=== PATIENT | male | born 1960 | race Caucasian/White ===

== ENCOUNTER 2025-03-06 18:20 | Inpatient (IN) | payer MEDICARE, SELFPAY ==
[2025-03-06] VITALS (37 sets, daily range): BP systolic 113–155; BP diastolic 81–101; PULSE 87–118; TEMP 36.6–37.3; O2SAT 91–99; BMI 28.5; BMI 28.0
--- NOTE | 2025-03-06 18:42 | XR_ITS ---
[facility] [place] [id number] Patient Name: MAGALY WALKER MRN: [id number] date: 1960 Sex: M Assigned Patient Location: ER Current Patient Location: ER Accession/Order Number: [id number] Exam Date: 03/06/2025 18:55 Report Date: 03/06/2025 19:06 At the request of: NIKA GARCIA MD Procedure: XR chest 1V Single view chest: CLINICAL HISTORY: shortness of breath COMPARISON: Chest 04/15/2022 FINDINGS: The heart is normal in size. The lungs are clear. The pulmonary vasculature is normal. Mediastinum and hilar regions are unremarkable. No pleural effusions are seen. Visualized bones are intact. XR/XR chest 1V IMPRESSION: NO ACUTE PROCESS. Impression dictated by: Sang Horn Jr., D.O. 03/06/2025 7:06 PM Dictation Location: [place] [address] Electronically authenticated by: [id number] Y Date: 03/06/2025 19:06
--- NOTE | 2025-03-06 18:42 | ECG_ITS ---
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 Measurements Intervals [place] Rate: 114 P: 61 IL: 148 QRS: 27 QRSD: 84 T: 64 QT: 302 QTc: 369 Interpretive Statements 1120 Sinus tachycardia 4068 Nonspecific Twave abnormality abnormal ECG Compared to ECG 04/15/2022 12:17:20 Sinus rhythm no longer present Electronically Signed On 03-06-2025 19:27:42 EDT by MELISSA SERNA M.D.
[2025-03-06 18:55] LABS: Hematocrit 40.7 % (42.0-54.0); Hemoglobin 14.0 g/dL (14.0-18.0); Immature Granulocytes Abs Auto 0.04 10^3/uL (0.00-0.03); Immature Granulocytes Pct Auto 0.4 % (0.0-0.5); Lymphocytes Absolute Auto 0.9 10^3/uL (1.2-3.8); Mean Corpuscular HGB Conc 34.4 g/dL (29.9-35.2); Mean Corpuscular Hemoglobin 30.4 pg (25.9-34.0); Mean Corpuscular Volume 88.3 fL (80.0-94.0); Platelet Count 247 10^3/uL (150-450); Red Blood Count 4.61 10^6/uL (4.70-6.10); White Blood Count 9.8 10^3/uL (4.0-11.0)
--- NOTE | 2025-03-06 19:04 | ED.GENADUL1 ---
HPI HPI - General Adult General Chief complaint: Chest Pain Stated complaint: CHEST PAINS Time Seen by Provider: 03/06/25 18:55 Source: patient Mode of arrival: walk-in Limitations: no limitations History of Present Illness HPI narrative: Patient is a 65-year-old male with a past medical history of prostate cancer and Amawalk's disease that presents to the emergency department with chest pain and shortness of breath that started at approximately 4 PM today, about 3 hours prior to arrival. The pain does radiate into his left shoulder and is worse with inspiration. Patient denies any blunt trauma or falls. He states that prior to the chest pain starting he did have an episode where he was dizzy and became diaphoretic. This resolved with rest. He has been getting dizziness again since the chest pain started. He denies any nausea/vomiting/abdominal pain, or diarrhea. He was at a car show when the pain started and took 3 aspirin and called his as he did not think he could drive. Related Data Home Medications ?Medication ?Instructions ?Recorded ?Confirmed albuterol sulfate 90 mcg/actuation 2 puff inhalation Q6H PRN 03/06/25 03/06/25 aerosol inhaler shortness of breath or wheezing atorvastatin 20 mg tablet 20 mg PO QDAY 03/06/25 03/06/25 famotidine 20 mg tablet 20 mg PO QDAY 03/06/25 03/06/25 fluticasone propionate 50 1 spray intranasal QDAY PRN 03/06/25 03/06/25 mcg/actuation nasal allergy symptoms spray,suspension hydrochlorothiazide 25 mg tablet 25 mg PO QDAY 03/06/25 03/06/25 hydrocortisone 10 mg tablet 10 mg PO Q8H 03/06/25 03/06/25 sertraline 25 mg tablet 25 mg PO Q24H 03/06/25 03/06/25 tizanidine 4 mg tablet 4 mg PO .qhs 03/06/25 03/06/25 Allergies Allergy/AdvReac Type Severity Reaction Status Date / Time No Known Drug Allergies Allergy Verified 03/06/25 18:27 Opioid HPI Opioid Management Most Recent Opioid Data: Last Pain Scale 8 Today, 21:29 Last JUL Pain Assessment Today, 19:46 Review of Systems ROS Status of ROS 10 or more systems reviewed and unremarkable except as noted in history and below PFSH PFSH Social History Little interest or pleasure in doing things: not at all Feeling down, depressed, or hopeless: not at all Exam Narrative Exam Narrative: General: No distress, age-appropriate Skin: Warm, dry, no pallor. No rash. Head: Normocephalic, atraumatic. Neck: Supple, non-tender. Eye: Pupils are equal, round and EOMI. No scleral icterus. Ears, Nose, Mouth, and Throat: No nasal mucosal hypertrophy. Oral mucosa is moist, no posterior oropharynx erythema, uvula is mid-line Cardiovascular: Regular Rate and Rhythm without murmur, gallop or rub. Respiratory: No accessory muscle use or respiratory distress. Lungs are clear to auscultation, no wheezing, rales or rhonchi Chest Wall: no tenderness Back: No midline thoracic or lumbar vertebral tenderness. Musculoskeletal: Full ROM of all extremities, no calf or popliteal tenderness GI: Abdomen is soft, non-distended, non tender to palpation. No masses appreciated. No rebound, guarding, or rigidity noted. Neurological: A&O x4. No cranial nerve dysfunction observed. No truncal ataxia. Moves all extremities. Sensation intact. Psychiatric: Cooperative and interactive. Normal mood and affect. Constitutional Vital Signs, click to edit/add: Last Vital Signs Temp 99.2 F 03/06/25 18:37 Pulse 96 H 03/06/25 21:00 Resp 15 03/06/25 21:00 BP 126/85 03/06/25 21:00 Pulse Ox 97 03/06/25 21:40 O2 Del Method Nasal Cannula 03/06/25 21:40 O2 Flow Rate 2 03/06/25 21:40 Course Vital Signs Vital signs: Vital Signs Blood Pressure 150/101 H 03/06/25 18:29 Pulse Oximetry 95 03/06/25 18:29 Temperature 99.2 F 03/06/25 18:37 Pulse Rate 96 H 03/06/25 21:00 Respiratory Rate 15 03/06/25 21:00 Blood Pressure 126/85 03/06/25 21:00 Pulse Oximetry 97 03/06/25 21:40 Oxygen Delivery Method Nasal Cannula 03/06/25 21:40 Oxygen Delivery Flow Rate 2 03/06/25 21:40 Medical Decision Making MDM Narrative Medical decision making narrative: This is a 65-year-old male that presented to the emergency department about 3 hours after onset of left-sided chest pain that radiates into his left shoulder and somewhat into his back. He denies any blunt trauma or falls. He he does report shortness of breath. He denies nausea/vomiting. He has had some episodes of dizziness and diaphoresis. One episode was prior to the onset of his chest pain. After the chest pain started he took 3 aspirin and called his as he could not drive to get to the emergency department. On arrival patient is sitting up on the ED cart, nondiaphoretic, in no distress, pain with deep inspiration on exam. Blood pressure is hypertensive, patient is tachycardic. He is 97% O2 saturation on room air. No respiratory distress. IV placed. CBC/CMP/troponin/D-dimer ordered. Chest x-ray ordered. 0.5 mg Dilaudid ordered for pain Differential diagnosis: - ACS - PE - Pneumothorax - Aortic dissection - Pericarditis/myocarditis EKG on arrival shows sinus tachycardia, no ST elevation or T wave abnormalities. Chest x-ray negative for acute abnormalities, no pneumothorax, no pleural effusion. No mediastinal widening. D-dimer elevated at 2.46-CTA chest ordered Troponin negative: 7.8 BMP: Cr 1.8/ BUN 30-unknown baseline CTA chest results received and impression is positive for pulmonary emboli within the distal right main pulmonary artery and segmental and subsegmental pulmonary artery supplying right upper and lower lobes. There is flattening of the inner ventricular septum and increased right to left ventricular ratio indicating a right heart strain. There is enlarged main pulmonary artery which may be seen with pulmonary arterial hypertension. I did call and review these findings with Dr. Marroquin who will accept patient for admission here. Patient and his updated with plan. PT/INR/APTT ordered and within normal limits. Heparin bolus and heparin drip ordered. On reevaluation pain is starting to increase again after initial Dilaudid dose. 1 mg Dilaudid ordered. Vitals have remained stable during patient's ED course and patient was admitted to [facility] for further evaluation and treatment. Lab Data Lab results reviewed: Yes I reviewed the patient's lab results Labs: Lab Results 03/06/25 03/06/25 Range/Units 18:47 18:48 WBC 9.8 (4.0-11.0) 10^3/uL RBC 4.61 L (4.70-6.10) 10^6/uL Hgb 14.0 (14.0-18.0) g/dL Hct 40.7 L (42.0-54.0) % MCV 88.3 (80.0-94.0) fL MCH 30.4 (25.9-34.0) pg MCHC 34.4 (29.9-35.2) g/dL RDW 12.4 (11.0-15.0) % Plt Count 247 (150-450) 10^3/uL MPV 8.9 L (9.5-13.5) fL Neut % (Auto) 77.8 H (43.0-75.0) % Lymph % (Auto) 9.1 L (20.5-60.0) % [place] % (Auto) 11.4 (1.7-12.0) % Eos % (Auto) 1.0 (0.9-7.0) % Baso % (Auto) 0.3 (0.2-2.0) % Neut # (Auto) 7.7 H (1.4-6.5) 10^3/uL Lymph # (Auto) 0.9 L (1.2-3.8) 10^3/uL [place] # (Auto) 1.1 H (0.3-0.8) 10^3/uL Eos # (Auto) 0.1 (0.0-0.7) 10^3/uL Baso # (Auto) 0.0 (0.0-0.1) 10^3/uL Abs Immat Gran (auto) 0.04 H (0.00-0.03) 10^3/uL Imm/Tot Granulo (auto) 0.4 (0.0-0.5) % PT 10.5 (9.0-11.6) sec INR 0.99 APTT 28.8 (22.3-36.2) sec D-Dimer 2.46 H* (<=0.59) mg/L FEU Sodium 140 (136-145) mmol/L Potassium 4.1 (3.5-5.1) mmol/L Chloride 102 (98-107) mmol/L Carbon Dioxide 23.8 (21.0-32.0) mmol/L Anion Gap 18.3 BUN 30.0 H (7.0-18.0) mg/dL Creatinine 1.88 H (0.70-1.30) mg/dL Est GFR ( Amer) 44 L (>=60 mL/min/1.73m^2) Est GFR (Non-Af Amer) 36 L (>=60 mL/min/1.73m^2) BUN/Creatinine Ratio 16.0 Glucose 125 H (74-106) mg/dL Calcium 9.4 (8.5-10.1) mg/dL Total Bilirubin 0.6 (0.2-1.0) mg/dL AST 16 (15-37) U/L ALT 23 (16-63) U/L Alkaline Phosphatase 90 (46-116) U/L Troponin I High Sens 7.8 (4.0-76.1) pg/mL Total Protein 8.0 (6.4-8.2) g/dL Albumin 4.1 (3.4-5.0) g/dL Globulin 3.9 g/dL Albumin/Globulin Ratio 1.[address] scan - chest: Attestation: I have reviewed the pertinent imaging results. Radiologist's impression: ITS Impressions Chest X-Ray 03/06/25 18:42 IMPRESSION: NO ACUTE PROCESS. Impression dictated by: Sang Horn Jr., D.OSyed 03/06/2025 7:06 PM Dictation Location: [place] [address] Electronically authenticated by: [id number] Y Date: 03/06/2025 19:06 ECG Data Attestation: ?I have reviewed the pertinent ECG results. Discharge Plan Discharge Chief Complaint: Chest Pain Clinical Impression: Pulmonary embolism Patient Disposition: Admitted As Inpatient Time of Disposition Decision: 21:17 Condition: Fair
[2025-03-06 19:11] LABS: Alanine Aminotransferase 23 U/L (16-63); Albumin Globulin Ratio 1.1; Albumin Level 4.1 g/dL (3.4-5.0); Alkaline Phosphatase 90 U/L (46-116); Anion Gap 18.3; Aspartate Amino Transferase 16 U/L (15-37); Blood Urea Nitrogen 30.0 mg/dL (7.0-18.0); Calcium 9.4 mg/dL (8.5-10.1); Carbon Dioxide 23.8 mmol/L (21.0-32.0); Chloride 102 mmol/L (98-107); Estimated GFR (African America 44 (>=60 mL/min/1.73m^2); Estimated GFR (Non-African Ame 36 (>=60 mL/min/1.73m^2); Globulin 3.9 g/dL; Glucose 125 mg/dL (74-106); Potassium 4.1 mmol/L (3.5-5.1); Sodium 140 mmol/L (136-145); Total Protein 8.0 g/dL (6.4-8.2)
[2025-03-06] MEDS: HYDROMORPHONE HCL 0.5 MG/0.5 ML SYRINGE IV (19:46)
[2025-03-06 21:15] LABS: INR 0.99; Prothrombin Time 10.5 sec (9.0-11.6)
[2025-03-06 21:16] LABS: Partial Thromboplastin Time 28.8 sec (22.3-36.2)
[2025-03-06] MEDS: HYDROMORPHONE HCL 1 MG/ML CARTRIDGE IV (21:29)
[2025-03-06 21:46] LABS: Alanine Aminotransferase 27 U/L (16-63); Albumin Globulin Ratio 1.0; Albumin Level 4.0 g/dL (3.4-5.0); Alkaline Phosphatase 92 U/L (46-116); Aspartate Amino Transferase 15 U/L (15-37); Globulin 3.9 g/dL; Total Protein 7.9 g/dL (6.4-8.2)
[2025-03-06] MEDS: MORPHINE SULFATE 4 MG/ML VIAL IV (23:16)
[2025-03-07] VITALS (19 sets, daily range): BP systolic 116–128; BP diastolic 77–85; PULSE 68–115; TEMP 37.1–37.7; O2SAT 84–96
[2025-03-07] MEDS: 0.9 % SODIUM CHLORIDE 1,000 ML 125 ML IV
[2025-03-07] MEDS: HYDROMORPHONE HCL 0.5 MG/0.5 ML SYRINGE 0.25 MG IV ×2 (02:24→06:29)
[2025-03-07 06:23] LABS: Hematocrit 40.7 % (42.0-54.0); Hemoglobin 13.7 g/dL (14.0-18.0); Immature Granulocytes Abs Auto 0.04 10^3/uL (0.00-0.03); Immature Granulocytes Pct Auto 0.5 % (0.0-0.5); Lymphocytes Absolute Auto 1.2 10^3/uL (1.2-3.8); Mean Corpuscular HGB Conc 33.7 g/dL (29.9-35.2); Mean Corpuscular Hemoglobin 30.2 pg (25.9-34.0); Mean Corpuscular Volume 89.8 fL (80.0-94.0); Platelet Count 241 10^3/uL (150-450); Red Blood Count 4.53 10^6/uL (4.70-6.10); White Blood Count 7.5 10^3/uL (4.0-11.0)
[2025-03-07 06:38] LABS: Anion Gap 17.8; Blood Urea Nitrogen 28.0 mg/dL (7.0-18.0); Calcium 9.0 mg/dL (8.5-10.1); Carbon Dioxide 24.4 mmol/L (21.0-32.0); Chloride 102 mmol/L (98-107); Estimated GFR (African America 46 (>=60 mL/min/1.73m^2); Estimated GFR (Non-African Ame 38 (>=60 mL/min/1.73m^2); Glucose 108 mg/dL (74-106); Magnesium 1.4 mg/dL (1.8-2.4); Potassium 4.2 mmol/L (3.5-5.1); Sodium 140 mmol/L (136-145)
[2025-03-07 06:39] LABS: Alanine Aminotransferase 22 U/L (16-63); Albumin Globulin Ratio 0.9; Albumin Level 3.6 g/dL (3.4-5.0); Alkaline Phosphatase 88 U/L (46-116); Aspartate Amino Transferase 15 U/L (15-37); Globulin 4.0 g/dL; Total Protein 7.6 g/dL (6.4-8.2)
--- NOTE | 2025-03-07 07:30 | ECG_ITS ---
[facility] Test Date: 2025-03-07 Pat Name: MAGALY WALKER Department: Room: 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 Measurements Intervals [place] Rate: 106 P: 50 UT: 147 QRS: 19 QRSD: 100 T: 42 QT: 320 QTc: 426 Interpretive Statements SINUS TACHYCARDIA POSSIBLE LEFT ATRIAL ENLARGEMENT [-0.1mV P WAVE IN V1/V2] ABNORMAL RHYTHM ECG Compared to ECG 03/06/2025 18:31:17 No significant changes Electronically Signed On 03-07-2025 18:25:43 EDT by MELISSA SERNA M.D.
--- NOTE | 2025-03-07 08:30 | CM.NOTE ---
Rounds made with Dr. Marroquin, discussed diagnosis and plan of care. Pt will have cardiac echo today, pt continues with chest pain. Dr. Marroquin will change pain medication and also provided one time dose now.
[2025-03-07] MEDS: HYDROMORPHONE HCL 1 MG/ML CARTRIDGE IV (08:46)
[2025-03-07] MEDS: ENOXAPARIN SODIUM 80 MG/0.8 ML SYRINGE SUBQ ×3 (08:46→21:46)
--- NOTE | 2025-03-07 09:05 | PM.HP ---
HPI H&P: HPI History of Present Illness Chief complaint: PULMONARY EMBOLISNA Narrative: Mr. Braun is a 65-year-old gentleman who came in with shortness of breath. This started yesterday. He was found to have segmental pulmonary bolusing. No prior history of pulmonary embolism. Denies any lower extremity swelling. No recent travel. No recent hospitalization. Patient has known history of prostate cancer which had been removed by removing the prostate. The patient is not aware that he has any metastasis. Patient reported having chest pain. Pleuritic. He cannot take a deep breath. Opioid HPI Opioid Management Most Recent Pain and Opioid Data: Last Pain Scale 10 Today, 08:46 Last Pain Assessment 03/06/25, 23:46 Last MAR Pain Assessment 03/06/25, 19:46 Last ORT Total Score 3 03/06/25, 23:37 Last ORT Risk Category Low Risk 03/06/25, 23:37 PFS PFS Medical History (Updated 03/07/25 @ 09:08 by Kassie Marroquin MD) Prostate CA ?C61 - Malignant neoplasm of prostate (ICD-10) Surgical History (Updated 03/06/25 @ 23:34 by Yakelin Gonzalez) History of tonsillectomy ?Z90.89 - Acquired absence of other organs (ICD-10) H/O transurethral resection of prostate ?Z98.890 - Other specified postprocedural states (ICD-10) ?Z90.79 - Acquired absence of other genital organ(s) (ICD-10) Family History (Updated 03/06/25 @ 23:35 by Yakelin Gonzalez) Other Family history of CHF (congestive heart failure) Family history of COPD (chronic obstructive pulmonary disease) Family history of cancer Family history of hypertension Social History (Updated 03/06/25 @ 23:36 by Yakelin Gonzalez) Within the past year, how often did you have a drink containing alcohol: 2-4 times a month Within the past year, how many standard drinks containing alcohol did you have on a typical day: 1 or 2 Total score: 0 Score interpretation: A score less than 4 is consistent with normal alcohol consumption. Smoking status: Never smoker Non-prescribed substance use: denies use Previous occupational history: retired Are you now , , , , never or living with a partner: In a typical week, how many times do you talk on the telephone with family, friends, or neighbors: 3 or more times per week How often do you get together with friends or relatives: 3 or more times per week Little interest or pleasure in doing things: not at all Feeling down, depressed, or hopeless: not at all Feel stressed/tense/nervous/anxious/difficulty sleeping: not at all Do you think of yourself as: straight/heterosexual Gender Identity: male Meds Home Medications and Allergies Home Medications ?Medication ?Instructions ?Recorded ?Confirmed ?Type albuterol sulfate 90 mcg/actuation 2 puff inhalation Q6H PRN 03/06/25 03/06/25 History aerosol inhaler shortness of breath or wheezing atorvastatin 20 mg tablet 20 mg PO QDAY 03/06/25 03/06/25 History famotidine 20 mg tablet 20 mg PO QDAY 03/06/25 03/06/25 History fluticasone propionate 50 1 spray intranasal QDAY PRN 03/06/25 03/06/25 History mcg/actuation nasal allergy symptoms spray,suspension hydrochlorothiazide 25 mg tablet 25 mg PO QDAY 03/06/25 03/06/25 History hydrocortisone 10 mg tablet 10 mg PO Q8H 03/06/25 03/06/25 History sertraline 25 mg tablet 25 mg PO Q24H 03/06/25 03/06/25 History tizanidine 4 mg tablet 4 mg PO .qhs 03/06/25 03/06/25 History Allergies Allergy/AdvReac Type Severity Reaction Status Date / Time No Known Drug Allergies Allergy Verified 03/06/25 18:27 Exam Narrative Exam Narrative: [pt is awake and alert. oriented to place, time and person, moderate distress secondary to chest pleuritic discomfort. HEENT: [place] conjunctiva and NL buccal mucosa Neck: Supple, no tenderness Endocrine: No Thyromegaly. Vascular: No JVD or carotid bruit. Lymphatic: No cervical lymphadenopathy. Chest: CTA no DTP. Heart RRR, no extra sound or murmur. Abd: Soft, no tenderness, no rebound and no rigidity. Increase abd girth therefore clinically I could not exclude the possibility of intra abd mass or organomegaly. LE: No cyanosis or clubbing, no varices or edema. Neuro: A A O. Nl speech, comprehension and attention. Nl and symetrical motor and tone examination through out. []] Constitutional Vital Signs, click to edit/add: Last Vital Signs Temp 99.9 F 03/07/25 08:00 Pulse 103 H 03/07/25 08:00 Resp 20 03/07/25 08:00 BP 125/85 03/07/25 08:00 Pulse Ox 94 L 03/07/25 08:00 O2 Del Method Room Air 03/07/25 08:00 O2 Flow Rate 3 03/07/25 04:00 Results Labs Labs: Short CBC 03/06/25 03/07/25 Range/Units 18:48 06:12 WBC 9.8 7.5 (4.0-11.0) 10^3/uL Hgb 14.0 13.7 L (14.0-18.0) g/dL Hct 40.7 L 40.7 L (42.0-54.0) % Plt Count 247 241 (150-450) 10^3/uL BMP 03/06/25 03/07/25 18:48 06:12 Sodium 140 140 Potassium 4.1 4.2 Chloride 102 102 Carbon Dioxide 23.8 24.4 BUN 30.0 H 28.0 H Creatinine 1.88 H 1.81 H Glucose 125 H 108 H Calcium 9.4 9.0 Liver Function 03/06/25 03/06/25 03/06/25 Range/Units 18:48 18:48 18:48 Total Bilirubin 0.6 0.5 (0.2-1.0) mg/dL Direct Bilirubin 0.1 (0.0-0.2) mg/dL AST 16 15 (15-37) U/L ALT 23 (16-63) U/L Alkaline Phosphatase (46-116) U/L Albumin (3.4-5.0) g/dL 03/06/25 03/06/25 03/06/25 Range/Units 18:48 18:48 18:48 Total Bilirubin (0.2-1.0) mg/dL Direct Bilirubin (0.0-0.2) mg/dL AST (15-37) U/L ALT 27 (16-63) U/L Alkaline Phosphatase 90 92 (46-116) U/L Albumin 4.1 4.0 (3.4-5.0) g/dL 03/07/25 Range/Units 06:12 Total Bilirubin 0.9 (0.2-1.0) mg/dL Direct Bilirubin 0.2 (0.0-0.2) mg/dL AST 15 (15-37) U/L ALT 22 (16-63) U/L Alkaline Phosphatase 88 (46-116) U/L Albumin 3.6 (3.4-5.0) g/dL Assessment and Plan Assessment and Plan (1) Pulmonary embolism: (2) Renal failure: Plan Acute segmental pulmonary embolism Evidence of right-sided heart strain on imaging however patient is hemodynamically stable. Blood pressure is 125 systolically. Saturation 94% on room air. No strong justification for thrombectomy or thrombolysis. I started patient on Lovenox 1 mg/kg twice a day, marginally adjusted due to renal failure Telemetry monitoring. Echocardiogram to assess the degree of cardiac strain Patient may need to have a coagulopathy workup. Requested hematology consultation. Requested renal ultrasound to see if patient has active DVT in legs. Clinically no leg swelling or discomfort. Renal failure. Creatinine is 1.8. GFR is 36. No old records available in [email or web address]. Try to get records from his PCP. If this is acute would recommend additional workup for ALONSO. Certainly having a CTA of the chest in the emergency room add some complexity to the kidney failure and the potential contrast nephropathy. Requested UA to see if there is any RBC or protein. History of prostate cancer status post prostatectomy according to patient. Patient is not aware that he has any mets. [place] disease Resume cortisone treatment. Chronic, subacute medical conditions not listed above, abnormal labs and imaging. These would need to be addressed. Could be addressed later on or in the outpatient setting by PCP collaboration with other needed outpatient providers when time and condition are appropriate.
[2025-03-07] MEDS: TRAMADOL HCL 50 MG TABLET PO ×2 (09:19→16:53)
[2025-03-07] MEDS: KETOROLAC TROMETHAMINE 30 MG/ML VIAL 15 MG IM (09:19)
[2025-03-07] MEDS: HYDROCORTISONE 20 MG TABLET 10 MG PO ×2 (09:19→16:48)
[2025-03-07] MEDS: FAMOTIDINE 20 MG TABLET PO (09:19)
[2025-03-07] MEDS: 0.9 % SODIUM CHLORIDE 1,000 ML 100 ML IV (09:22)
[2025-03-07] MEDS: SERTRALINE HCL 50 MG TABLET 25 MG PO (09:30)
[2025-03-07] MEDS: HYDROMORPHONE HCL 0.5 MG/0.5 ML SYRINGE IV ×2 (13:13→20:25)
[2025-03-07 13:51] LABS: Glucose Urine UA NEGATIVE (NEGATIVE)
[2025-03-07 14:05] LABS: Cast Seen? NONE SEEN #/LPF (NONE SEEN); Crystals Seen? None Seen #/HPF (None Seen); Urine Culture Indicated NO
--- NOTE | 2025-03-07 14:11 | SWNOTE1 ---
Important Message from Medicare reviewed and discussed with patient. Pt. verbalized understanding and signed the form. Original given to patient and copy placed in patient?s chart.
--- NOTE | 2025-03-07 14:11 | SWNOTE1 ---
SW met with pt and in room. Pt is independent and does not have any anticipated discharge needs at this time. SW to follow as needed.
--- NOTE | 2025-03-07 14:12 | SWNOTE1 ---
Pt is on 3 liters of oxygen at this time and does not have home oxygen.
--- NOTE | 2025-03-07 21:21 | CA_ITS ---
Patient Name: MAGALY WALKER MR#: [id number] : 1960 Exam Date: 03/07/2025 Ordering Doctor: ROSALINA PERALTA ECHOCARDIOGRAM REPORT PROCEDURE: CA ECHO DOPPLER COMPLETE INDICATIONS: Pulm embolism, h/o prostate cancer COMPARISON: None. DESCRIPTION: COMPLETE ECHOCARDIOGRAM Real-time transthoracic echocardiography with 2D, M-mode, spectral and color flow Doppler performed. QUALITY: Technical quality was good. LEFT VENTRICLE: Normal chamber size. Thickened septal wall. Normal systolic function. Estimated left ventricular ejection fraction is 65 %. LV EF: Normal left ventricular ejection fraction, (>55%). DIASTOLIC: Normal diastolic function. ATRIAL SEPTUM: Visually appears intact. LEFT ATRIUM: Normal chamber size. RIGHT ATRIUM: Normal chamber size. RIGHT VENTRICLE: Normal chamber size. Normal right ventricular systolic function. TRICUSPID VALVE: Normal mobility and thickness. No stenosis with no regurgitation. Unable to assess right-sided pressures due to lack of measurable tricuspid regurgitation. MITRAL VALVE: Normal mobility and thickness. No evidence of mitral valve stenosis. There is no mitral annular calcification. No mitral regurgitation. AORTIC VALVE: Normal trileaflet appearance. No visible sclerosis. Normal leaflet mobility. No evidence of aortic valve stenosis. No aortic regurgitation. AORTIC ROOT: Normal diameter and appearance, measuring 3.4 cm. PULMONIC VALVE: Normal thickness and mobility. No stenosis. PERICARDIUM: No evidence of pericardial effusion. IVC: Collapses with inspirations. IVC is normal in size. PLEURA: CONCLUSION: 1. Normal ventricular size and systolic function. LVEF is estimated at 65%. 2. Normal diastolic function. 3. No significant valvular dysfunction. 4. Unable to assess right-sided pressures due to lack of measurable tricuspid regurgitation. Adult Echocardiography Procedure Report Left Ventricle LVEDD (3.7 - 5.6 cm): 4.03 cm LVESD (2.2 - 4.0 cm): 2.54 cm LVIVS thickness (0.6 - 1.2 cm): 1.21 cm LVPW thickness (0.5 - 1.0 cm): 0.97 cm e': 0.12 m/s E - e': 5.03 LVOT Max Gradient: 4.24 mm[Hg] LVOT Area (cm2): 1.03 m/s Peak Velocity (LVOT): 1.03 m/s Mean Velocity (LVOT): 0.62 m/s LVOT Diameter 2.42 cm Left Ventricular Ejection Fraction: 65 % Left Atrium LA Volume Index (2D A2C): 28.23 ml/m2 Left Atrium Systolic Dimension: 2.99 cm Mitral Valve MV E to A Ratio: 0.70 Mitral Valve A-Wave Peak Velocity: 0.85 m/s Mitral Valve E-Wave Peak Velocity: 0.59 m/s Right Ventricle Aorta AO Root Diam: 3.36 cm Aortic Valve AoV Area (Peak William): 3.14 cm2, 3.14 cm2 AoV Area (VTI): 3.27 cm2, 3.27 cm2 Peak Velocity(Antegrade Flow): 1.51 m/s Peak Gradient(Antegrade Flow): 9.09 mm[Hg] Mean Velocity(Antegrade Flow): 1.01 m/s Mean Gradient(Antegrade Flow): 4.82 mm[Hg] Velocity Time Integral: 24.96 cm Tricuspid Valve Pulmonic Valve Peak Gradient: 4.27 mm[Hg], 4.51 mm[Hg] Right Atrium Right Atrium Systolic Pressure: 45.99 ml, 45.99 ml Dictated by: Garrison Zamora M.D. on 03/07/2025 at 13:09 Approved by: Garrison Zamora M.D. on 03/07/2025 at 13:13
[2025-03-07] MEDS: TIZANIDINE HCL 4 MG TABLET PO (21:46)
[2025-03-07] MEDS: ATORVASTATIN CALCIUM 20 MG TABLET PO (21:46)
[2025-03-08] VITALS (23 sets, daily range): BP systolic 99–140; BP diastolic 62–89; PULSE 73–91; TEMP 36.6–36.8; O2SAT 90–96
[2025-03-08] MEDS: HYDROCORTISONE 20 MG TABLET 10 MG PO ×5 (01:19→21:02)
[2025-03-08] MEDS: TRAMADOL HCL 50 MG TABLET PO (03:41)
[2025-03-08 06:03] LABS: Hematocrit 35.2 % (42.0-54.0); Hemoglobin 11.9 g/dL (14.0-18.0); Mean Corpuscular HGB Conc 33.8 g/dL (29.9-35.2); Mean Corpuscular Hemoglobin 30.4 pg (25.9-34.0); Mean Corpuscular Volume 89.8 fL (80.0-94.0); Platelet Count 206 10^3/uL (150-450); Red Blood Count 3.92 10^6/uL (4.70-6.10); White Blood Count 9.6 10^3/uL (4.0-11.0)
[2025-03-08 06:07] LABS: Immunoglobulin G, Qn 744 mg/dL (603-1613); Immunoglobulin M, Q 87 mg/dL (20-172)
[2025-03-08] MEDS: HYDROMORPHONE HCL 0.5 MG/0.5 ML SYRINGE IV ×2 (06:08→09:54)
[2025-03-08 06:16] LABS: Anion Gap 15.1; Blood Urea Nitrogen 31.0 mg/dL (7.0-18.0); Calcium 8.8 mg/dL (8.5-10.1); Carbon Dioxide 25.8 mmol/L (21.0-32.0); Chloride 103 mmol/L (98-107); Estimated GFR (African America 50 (>=60 mL/min/1.73m^2); Estimated GFR (Non-African Ame 41 (>=60 mL/min/1.73m^2); Glucose 104 mg/dL (74-106); Potassium 4.9 mmol/L (3.5-5.1); Sodium 139 mmol/L (136-145)
--- NOTE | 2025-03-08 08:07 | PM.CN ---
Consult Note: HPI Data of Consult Patient: new to practice Consult date: 03/08/25 Requesting Physician: Kassie Marroquin MD Primary Care Provider: HOLLIE NICOLAS Consult Narrative Reason for consult: pulmonary embolism Narrative: Chief complaint: PULMONARY EMBOLISM Narrative: Mr. Braun is a 65-year-old gentleman with hx of Mcculloch's disease, on hydrocortisone, who came in with shortness of breath. This started yesterday. He was found to have segmental pulmonary embolism. No prior history of pulmonary embolism. Denies any lower extremity swelling but does note that he gets frequent 'rose horses.' No recent travel. No recent hospitalization or immobility. He denies tobacco use. He notes hemorrhoid surgery in spring 2024, but otherwise no recent procedures. No known history of poor circulation. Patient has known history of prostate cancer / prostatectomy. The patient is not aware that he has any metastasis. Patient reported having chest pain. Pleuritic. He cannot take a deep breath. He was started on therapeutic Lovenox, and has plans for transition to Eliquis on discharge. He does note strong FH of blood clots, in maternal grandmother and sister. He notes that his breathing is improving. He is on room air now. We discussed limited hypercoagulable work-up while admitted including anticardiolipin Ab and beta-2 glycoprotein Ab. I will facilitate FVL and PTGM hereditary thrombophilia testing as an outpatient. I will also coordinate protein C, S, AT-3 as an outpt as these can be falsely low in setting of acute clot. I discussed likely 12 months of anticoagulation given suspected unprovoked PE. I discussed that if he does have thrombophilia, we would potentially discuss prophylactic anticoagulation after 12 months of therapeutic Eliquis. ECOG PS 2. cc:: CC: Kassie Marroquin MD Review of Systems ROS Narrative A comprehensive 12 point review of systems was obtained and is negative other than that reported in the history of present illness. [facility] Medical History (Updated 03/08/25 @ 18:48 by Kajal Rodgers MD) Prostate CA ?C61 - Malignant neoplasm of prostate (ICD-10) Surgical History (Updated 03/06/25 @ 23:34 by Yakelin Gonzalez) History of tonsillectomy ?Z90.89 - Acquired absence of other organs (ICD-10) H/O transurethral resection of prostate ?Z98.890 - Other specified postprocedural states (ICD-10) ?Z90.79 - Acquired absence of other genital organ(s) (ICD-10) Family History (Updated 03/06/25 @ 23:35 by Yakelin Gonzalez) Other Family history of CHF (congestive heart failure) Family history of COPD (chronic obstructive pulmonary disease) Family history of cancer Family history of hypertension Social History (Updated 03/06/25 @ 23:36 by Yakelin Gonzalez) Within the past year, how often did you have a drink containing alcohol: 2-4 times a month Within the past year, how many standard drinks containing alcohol did you have on a typical day: 1 or 2 Total score: 0 Score interpretation: A score less than 4 is consistent with normal alcohol consumption. Smoking status: Never smoker Non-prescribed substance use: denies use Previous occupational history: retired Are you now , , , , never or living with a partner: In a typical week, how many times do you talk on the telephone with family, friends, or neighbors: 3 or more times per week How often do you get together with friends or relatives: 3 or more times per week Little interest or pleasure in doing things: not at all Feeling down, depressed, or hopeless: not at all Feel stressed/tense/nervous/anxious/difficulty sleeping: not at all Do you think of yourself as: straight/heterosexual Gender Identity: male Meds Home Medications and Allergies Home Medications ?Medication ?Instructions ?Recorded ?Confirmed ?Type albuterol sulfate 90 mcg/actuation 2 puff inhalation Q6H PRN 03/06/25 03/06/25 History aerosol inhaler shortness of breath or wheezing atorvastatin 20 mg tablet 20 mg PO QDAY 03/06/25 03/06/25 History famotidine 20 mg tablet 20 mg PO QDAY 03/06/25 03/06/25 History fluticasone propionate 50 1 spray intranasal QDAY PRN 03/06/25 03/06/25 History mcg/actuation nasal allergy symptoms spray,suspension hydrochlorothiazide 25 mg tablet 25 mg PO QDAY 03/06/25 03/06/25 History hydrocortisone 10 mg tablet 10 mg PO Q8H 03/06/25 03/06/25 History sertraline 25 mg tablet 25 mg PO Q24H 03/06/25 03/06/25 History tizanidine 4 mg tablet 4 mg PO .qhs 03/06/25 03/06/25 History Allergies Allergy/AdvReac Type Severity Reaction Status Date / Time No Known Drug Allergies Allergy Verified 03/06/25 18:27 Exam Narrative Exam Narrative: Narrative Exam Narrative: [pt is awake and alert. oriented to place, time and person, moderate distress secondary to chest pleuritic discomfort. HEENT: [place] conjunctiva and NL buccal mucosa Neck: Supple, no tenderness Endocrine: No Thyromegaly. Vascular: No JVD or carotid bruit. Lymphatic: No cervical lymphadenopathy. Chest: CTA no DTP. Heart RRR, no extra sound or murmur. Abd: Soft, no tenderness, no rebound and no rigidity. Increase abd girth therefore clinically I could not exclude the possibility of intra abd mass or organomegaly. LE: No cyanosis or clubbing, no varices or edema. Neuro: A A O. Nl speech, comprehension and attention. Nl and symetrical motor and tone examination through out. Constitutional Vital Signs, click to edit/add: Last Vital Signs Temp 98.3 F 03/08/25 03:59 Pulse 81 03/08/25 07:49 Resp 18 03/08/25 03:59 BP 111/65 03/08/25 03:59 Pulse Ox 92 L 03/08/25 07:49 O2 Del Method Nasal Cannula 03/08/25 03:59 O2 Flow Rate 3 03/08/25 03:59 Results Labs Labs: Short CBC 03/08/25 Range/Units 05:49 WBC 9.6 (4.0-11.0) 10^3/uL Hgb 11.9 L (14.0-18.0) g/dL Hct 35.2 L (42.0-54.0) % Plt Count 206 (150-450) 10^3/uL BMP 03/08/25 05:49 Sodium 139 Potassium 4.9 Chloride 103 Carbon Dioxide 25.8 BUN 31.0 H Creatinine 1.69 H Glucose 104 Calcium 8.8 Urine 03/07/25 Range/Units 13:00 Urine Color Lt. yellow (YELLOW) Urine Clarity Clear (CLEAR) Urine pH 5.5 (5.0-9.0) Ur Specific [place] 1.025 (1.005-1.025) Urine Protein Negative (NEG/TRACE) mg/dL Urine Glucose (UA) Negative (NEGATIVE) mg/dL Assessment and Plan Assessment and Plan (1) Pulmonary embolism: Qualifiers: Pulmonary embolism type: unspecified Chronicity: acute Acute cor pulmonale presence: unspecified Qualified Code(s): I26.99 - Other pulmonary embolism without acute cor pulmonale (2) Renal failure: Qualifiers: Renal failure chronicity: unspecified chronicity Qualified Code(s): N19 - Unspecified kidney failure Plan Assessment and Plan (1) Pulmonary embolism: (2) Renal failure: (3) Strong FH of blood clots, sister and maternal grandmother: (4) History of prostate cancer (5) Anemia, likely from renal insufficiency Plan Acute segmental pulmonary embolism Evidence of right-sided heart strain on imaging however patient is hemodynamically stable --No strong justification for thrombectomy or thrombolysis. --Hospitalist team has started patient on Lovenox 1 mg/kg twice a day, marginally adjusted due to renal failure --Echocardiogram does not show right-sided heart strain although quality is suboptimal. --Requested ultrasound to see if patient has active DVT in legs. Clinically no leg swelling or discomfort. Ultrasound was negative for DVT. --I would classify his thrombosis event as likely unprovoked. No recent travel. No recent hospitalization or immobility. He denies tobacco use. He denies recent procedures. No known history of poor circulation. --I agree with Eliquis on discharge. Dosing is 10 mg BID x 1 week, then 5 mg BID. I anticipate 12 months of therapeutic dosing. --He does note strong FH of blood clots, in maternal grandmother and sister. --We discussed limited hypercoagulable work-up while admitted including anticardiolipin Ab and beta-2 glycoprotein Ab. --I will facilitate FVL and PTGM hereditary thrombophilia testing as an outpatient. --I will also coordinate protein C, S, AT-3 as an outpt as these can be falsely low in setting of acute clot. --As above, I discussed likely 12 months of anticoagulation given suspected unprovoked PE. I discussed that if he does have thrombophilia, we would potentially discuss prophylactic anticoagulation after he completes 12 months of therapeutic Eliquis. --Patient has known history of prostate cancer / prostatectomy. We will ensure that his cancer screening and surveillance is up to date, including PSA level Anemia likely from renal failure. Creatinine is 1.8. GFR is 36. No old records available [facility]. --If this is acute would recommend additional workup for ALONSO. Appreciate hospitalist care. --Certainly having a CTA of the chest in the emergency room add some complexity to the kidney failure and the potential contrast nephropathy. --Will review UA to see if there is any RBC or protein. History of prostate cancer status post prostatectomy according to patient. Patient is not aware that he has any mets. Be disease Continue cortisone treatment. Thank you for the consult. Will continue to follow. See me in 3 weeks as an outpatient for ongoing care. Kajal Rodgers MD [facility] Hematology Oncology
[2025-03-08] MEDS: SERTRALINE HCL 50 MG TABLET 25 MG PO (08:26)
[2025-03-08] MEDS: FAMOTIDINE 20 MG TABLET PO (08:26)
[2025-03-08] MEDS: APIXABAN 5 MG TABLET 10 MG PO ×2 (08:27→21:01)
--- NOTE | 2025-03-08 10:27 | CM.NOTE ---
Rounds made with . Pt remains on oxygen. Will continue to monitor. No plan for discharge at this time.
--- NOTE | 2025-03-08 12:14 | P.PN_ITS ---
Progress Note: Subjective Subjective Interval history: Patient is feeling better. Pain intensity has subsided. He continues to require IV Dilaudid. Less frequent than before. Improvement of shortness of breath. He continues to be hypoxic and requiring 2 to 3 L of oxygen. Exam Narrative Exam Narrative: [pt is awake and alert. oriented to place, time and person, mild distress secondary to chest pleuritic discomfort. HEENT: [place] conjunctiva and NL buccal mucosa Neck: Supple, no tenderness Endocrine: No Thyromegaly. Vascular: No JVD or carotid bruit. Lymphatic: No cervical lymphadenopathy. Chest: CTA no DTP. Heart RRR, no extra sound or murmur. Abd: Soft, no tenderness, no rebound and no rigidity. Increase abd girth therefore clinically I could not exclude the possibility of intra abd mass or organomegaly. LE: No cyanosis or clubbing, no varices or edema. Neuro: A A O. Nl speech, comprehension and attention. Nl and symetrical motor and tone examination through out. []] Constitutional Vital Signs, click to edit/add: Last Vital Signs Temp 97.9 F 03/08/25 08:00 Pulse 80 03/08/25 11:56 Resp 18 03/08/25 08:00 BP 117/78 03/08/25 08:00 Pulse Ox 93 L 03/08/25 11:53 O2 Del Method Nasal Cannula 03/08/25 11:53 O2 Flow Rate 1 03/08/25 11:53 Progress Note: Objective Labs Labs: Short CBC 03/08/25 Range/Units 05:49 WBC 9.6 (4.0-11.0) 10^3/uL Hgb 11.9 L (14.0-18.0) g/dL Hct 35.2 L (42.0-54.0) % Plt Count 206 (150-450) 10^3/uL BMP 03/08/25 05:49 Sodium 139 Potassium 4.9 Chloride 103 Carbon Dioxide 25.8 BUN 31.0 H Creatinine 1.69 H Glucose 104 Calcium 8.8 Urine 03/07/25 Range/Units 13:00 Urine Color Lt. yellow (YELLOW) Urine Clarity Clear (CLEAR) Urine pH 5.5 (5.0-9.0) Ur Specific [place] 1.025 (1.005-1.025) Urine Protein Negative (NEG/TRACE) mg/dL Urine Glucose (UA) Negative (NEGATIVE) mg/dL Progress Note: A&P Assessment and Plan (1) Pulmonary embolism: (2) Renal failure: Plan Acute segmental pulmonary embolism Hypoxic respiratory failure secondary to above. Initially patient was requiring 3 to 4 L to keep saturation above 91%. Currently is on 1 L only Evidence of right-sided heart strain on imaging however patient is hemodynamically stable. Blood pressure is solid. Saturation 94% on room air. No strong justification for thrombectomy or thrombolysis. I started patient on Lovenox 1 mg/kg twice a day, marginally adjusted due to renal failure This was converted to oral Eliquis and milligrams twice a day for 7 days followed by 5 mg twice a day Telemetry monitoring. Echocardiogram to assess the degree of cardiac strain. Echocardiogram does not show right-sided heart strain although quality is suboptimal. Patient reported having family history of blood clots. Patient may need to have a coagulopathy workup. Requested hematology consultation. Care is deferred. Requested renal ultrasound to see if patient has active DVT in legs. Clinically no leg swelling or discomfort. Ultrasound was negative for DVT. Pleuritic chest pain secondary to above. Patient reported that pain intensity has subsided. Continue Dilaudid intravenously, as needed tramadol. 1 dose of Toradol. Start patient on Lyrica. Renal failure. Creatinine is 1.8. GFR is 36. I was able to get all the record. Patient had creatinine ranging between 1.6 and 1.9 in August 2024. Patient reported that he follows up with the kidney specialist at [facility]. Kidney function now is near baseline. Patient is to follow-up with the [facility] nephrology team History of prostate cancer status post prostatectomy according to patient. Patient is not aware that he has any mets. Be disease Resume cortisone treatment. Chronic, subacute medical conditions not listed above, abnormal labs and imaging. These would need to be addressed. Could be addressed later on or in the outpatient setting by PCP collaboration with other needed outpatient providers when time and condition are appropriate.
[2025-03-08] MEDS: COLCHICINE 0.6 MG TABLET PO (12:54)
[2025-03-08] MEDS: KETOROLAC TROMETHAMINE 30 MG/ML VIAL 15 MG IVP (12:54)
[2025-03-08] MEDS: PREGABALIN 50 MG CAPSULE PO ×2 (12:54→21:01)
[2025-03-08 14:10] LABS: Beta-2 Glycoprotein I Ab, IgA <9 (0-25); Beta-2 Glycoprotein I Ab, IgG <9 (0-20); Beta-2 Glycoprotein I Ab, IgM <9 (0-32)
[2025-03-08] MEDS: ATORVASTATIN CALCIUM 20 MG TABLET PO (21:01)
[2025-03-08] MEDS: TIZANIDINE HCL 4 MG TABLET PO (21:01)
[2025-03-09] VITALS (10 sets, daily range): BP systolic 120; BP diastolic 77–80; PULSE 61–80; TEMP 36.6–36.9; O2SAT 84–98
[2025-03-09] MEDS: SERTRALINE HCL 50 MG TABLET 25 MG PO (08:38)
[2025-03-09] MEDS: FAMOTIDINE 20 MG TABLET PO (08:38)
[2025-03-09] MEDS: APIXABAN 5 MG TABLET 10 MG PO (08:38)
[2025-03-09] MEDS: HYDROCORTISONE 20 MG TABLET PO (08:38)
[2025-03-09] MEDS: PREGABALIN 50 MG CAPSULE PO (08:38)
--- NOTE | 2025-03-09 09:39 | P.DS_ITS ---
DS: Providers Provider Date of admission: 03/06/25 23:24 Primary care physician: HOLLIE NICOLAS Consults: 03/07/25 09:12 Consult to Oncology Routine Consulting Provider: Kajal Rodgers Reason for consultation: PE, coagulopathy DS: Diagnosis Discharge Diagnosis (1) Pulmonary embolism: Qualifiers: Acute cor pulmonale presence: unspecified Chronicity: acute Pulmonary embolism type: unspecified Qualified Code(s): I26.99 - Other pulmonary embolism without acute cor pulmonale (2) Renal failure: Qualifiers: Renal failure chronicity: unspecified chronicity Qualified Code(s): N19 - Unspecified kidney failure Plan As listed above, below and others that are not listed DS: Summary Hospital Course Hospital Course: Mr. Braun is a 65-year-old gentleman who came in with pleuritic chest pain and was found to have the following: Acute segmental pulmonary embolism Hypoxic respiratory failure secondary to above. Initially patient was requiring 3 to 4 L to keep saturation above 91%. Currently is on 1 L only Evidence of right-sided heart strain on imaging however patient is hemodynamically stable. Blood pressure is solid. Saturation 94% on room air. Today in fact his saturation is 98% on room air while walking in the room. No strong justification for thrombectomy or thrombolysis. I started patient on Lovenox 1 mg/kg twice a day, marginally adjusted due to renal failure This was converted to oral Eliquis and milligrams twice a day for 7 days followed by 5 mg twice a day Telemetry monitoring. No cardiac dysrhythmia noted. Sinus tachycardia had resolved. Echocardiogram to assess the degree of cardiac strain. Echocardiogram does not show right-sided heart strain although quality is suboptimal. Patient reported having family history of blood clots. Patient may need to have a coagulopathy workup. Patient is to follow-up with hematology in the outpatient setting Ultrasound is negative for DVT. Patient is feeling much better. Is ready physical and psychological to go home Patient is to follow-up with hematology in the outpatient setting Pleuritic chest pain secondary to above. Patient reported that pain intensity has subsided. Continue Dilaudid intravenously, as needed tramadol. 1 dose of Toradol. Start patient on Lyrica. Significant resolution of pleuritic chest pain. Patient will be discharged home on as needed tramadol and Lyrica 50 mg twice a day for 7 days. Renal failure. Creatinine is 1.8. GFR is 36. I was able to get all the record. Patient had creatinine ranging between 1.6 and 1.9 in August 2024. Patient reported that he follows up with the kidney specialist at [facility]. Kidney function now is near baseline. Patient is to follow-up with the [facility] nephrology team History of prostate cancer status post prostatectomy according to patient. Patient is not aware that he has any mets. Be disease Resume cortisone treatment. Chronic, subacute medical conditions not listed above, abnormal labs and imaging. These would need to be addressed. Could be addressed later on or in the outpatient setting by PCP collaboration with other needed outpatient providers when time and condition are appropriate. Patient has few medical issues as listed above and others that are not listed. All appear to be stable. Patient is feeling significantly better. Complete resolution of shortness of breath. No hypoxemia. Resolution of tachycardia. No dysrhythmia on the monitor. I do not have any clear or strong clinical justification to extend inpatient hospitalization. Patient however will require close and frequent monitoring as well as additional work-up, investigation and therapeutic intervention that could take place from this point on post discharge. That is to prevent relapse, decompensation, rehospitalization and other medical implications.. I instructed patient to ask her primary care doctor to obtain [facility] record entirely to address abnormalities seen on labs and imaging that I have and have not addressed during this hospitalization, follow-up on pending blood work, imaging and pathology is if available and to follow-up on needed medical care in the outpatient setting. Time Spent with Patient Time attestation: Total time spent providing and/or coordinating discharge services: Time spent: greater than 30 minutes Exam Narrative Exam Narrative: [pt is awake and alert. oriented to place, time and person no distress w hatsoever. HEENT: [place] conjunctiva and NL buccal mucosa Neck: Supple, no tenderness Endocrine: No Thyromegaly. Vascular: No JVD or carotid bruit. Lymphatic: No cervical lymphadenopathy. Chest: CTA no DTP. Heart RRR, no extra sound or murmur. Abd: Soft, no tenderness, no rebound and no rigidity. Increase abd girth therefore clinically I could not exclude the possibility of intra abd mass or organomegaly. LE: No cyanosis or clubbing, no varices or edema. Neuro: A A O. Nl speech, comprehension and attention. Nl and symetrical motor and tone examination through out. []] Constitutional Vital Signs, click to edit/add: Last Vital Signs Temp 98.4 F 03/09/25 08:28 Pulse 78 03/09/25 08:28 Resp 18 03/09/25 08:28 BP 120/77 03/09/25 08:28 Pulse Ox 91 L 03/09/25 08:28 O2 Del Method Room Air 03/09/25 08:28 O2 Flow Rate 1 03/09/25 05:55 DS: Data Data Completed and Pending Labs on day of discharge: Labs from last 24 hours 03/07/25 11:04 Beta-2 GPI IgG Ab <9 Beta-2 GPI IgM Ab <9 Beta-2 GPI IgA Ab <9 Anti-Cardiolipin IgG Ab <9 Discharge Plan Discharge Disposition: Home, Self-Care Condition: Fair Discharge Medications: New Eliquis 5 mg Tablet 5 mg PO BID Qty: 60 6RF Rx Instructions: Take 10 mg ( 2 X 5 mg tablets ) in the morning and 10 mg ( 2 X 5 mg tablets ) in the evening for 6 days After 6 days, take 5 mg, 1 tablet in the morning and 1 tablet in the evening tramadol 50 mg Tablet 50 mg PO Q6H PRN (Reason: Pain) Qty: 30 0RF pregabalin 50 mg Capsule 50 mg PO BID Qty: 14 0RF Continued albuterol sulfate 90 mcg/actuation HFA aerosol inhaler 2 puff INHALATION Q6H PRN (Reason: shortness of breath or wheezing) atorvastatin 20 mg tablet 20 mg PO QDAY famotidine 20 mg tablet 20 mg PO QDAY fluticasone propionate 50 mcg/actuation spray,suspension 1 spray INTRANASAL QDAY PRN (Reason: allergy symptoms) hydrochlorothiazide 25 mg tablet 25 mg PO QDAY sertraline 25 mg tablet 25 mg PO Q24H tizanidine 4 mg tablet 4 mg PO .qhs Changed hydrocortisone 10 mg tablet 10 mg PO .as directed Qty: 0 0RF Rx Instructions: Take 20 mg in the morning and 10 mg in the evening Print Language: [place] Activity Restrictions/Additional Instructions: I may not have addressed or treated all of your medical illnesses or the abnormal blood work or imaging studies during this hospitalization. Please ask y our primary care provider to obtain [place] records entirely to follow up on all of the abnormal physical, laboratory, and imaging findings that I have not addressed. Please return back to the emergency room or seek medical attention if your symptoms worsen or return. Follow-up with your kidney and prostate specialist at the [facility]. Discharging you from [place] does not mean that your medical care ends here and now. You may still need additional monitoring, work up, investigation, and treatment plan to be handled from this point on by out patient providers including your primary care provider and specialists. For any medication question, please contact your retail pharmacist or your primary care provider. Thank you. Forms: Portal Instructions Referrals: Kajal Rodgers MD [Physician] HOLLIE NICOLAS [Primary Care Provider, Family Practice]
--- NOTE | 2025-03-09 10:14 | CM.NOTE ---
Rounds made with Dr. Marroquin. Plan is for discharge today. Pt to follow up with PCP, Dr. Rodgers, and Urologist at [facility].
--- NOTE | 2025-03-09 10:19 | SWNOTE1 ---
SW provided pt with free 30 day trial Eliquis card and let pt know to take card to pharmacy when picking up. Pt is new to Eliquis. Pt and voiced understanding.
--- NOTE | 2025-03-09 11:11 | CM.NOTE ---
Spoke with patient and his and they would like to schedule the appt with the kidney/prostate specialist at [facility]
--- NOTE | 2025-03-09 14:21 | CM.NOTE ---
Called [facility] regarding pt's Eliquis. Pt states he was unable to fill script. Pharmacist verbalizes medication is a precert d/t sudhir of dose. [facility] faxing CM directions to precert. CM will start precert for Eliquis. If unable to get precert today will reach out to PCP for possible samples.
--- NOTE | 2025-03-09 14:31 | CM.NOTE ---
Pharmacist calls back from [facility] and states she is able to just rewrite pt's script to be 2 separate scripts that would allow initiation of starter pack with correct dosing. Insurance requires 2 separate scripts to cover Eliquis. No precert will be required, scripts will be changed. CM calling pt to update on Eliquis.
--- NOTE | 2025-03-10 13:20 | CM.DCFOLLOWU ---
Person spoke with: patient How are you feeling?well How is your pain?none Did you understand your discharge instructions?yes Do you have any questions about your discharge instructions?no Were you given any prescriptions at discharge?yes Were you able to get your prescriptions filled?yes Do you understand how to take your medications as ordered?yes Do you have any questions about your follow up appointment and do you plan to keep your follow up appointment? no questions, follow ups reviewed and are all listed on discharge paperwork, per patient Is there anything else that you would like to discuss?no Questions/Comments/Concerns/Other:none
== END 2025-03-09 12:20 | disposition home or self-care (01) | DRG 175 ==
LOC: ER 22:32 → MS 23:32
PROVIDERS: Emergency Medicine; Internal Medicine Hematology & Oncology; Physician Assistant; Admitting Provider Internal Medicine; Emergency Provider Emergency Medicine; PCP Family Medicine; Visit Provider Internal Medicine
DX: I26.99 Other pulmonary embolism without acute cor pulmonale (principal); J96.01 Acute respiratory failure with hypoxia; E27.1 Primary adrenocortical insufficiency; Z85.46 Personal history of malignant neoplasm of prostate; Z90.79 Acquired absence of other genital organ(s); Z79.899 Other long term (current) drug therapy; N19 Unspecified kidney failure; D64.9 Anemia, unspecified; Z83.2 Family history of diseases of the blood and blood-forming organs and certain disorders involving the immune mechanism; R07.81 Pleurodynia
CPT/HCPCS: 36415; 71045; 71275; 80048; 80053; 80076; 81001; 82784; 83735; 84484; 85025; 85027; 85378; 85610; 85730; 86146; 86147; 93005; 93306; 93970; 94761; 96374; 96375; 96376; 99285; J1171; J1650; J1885; J2270; J2405; J8499; Q9966

== ENCOUNTER 2025-03-29 15:24 | Outpatient (RCR) | payer MEDICARE, SELFPAY ==
[2025-03-29 16:26] LABS: Anion Gap 14.3; Blood Urea Nitrogen 34.0 mg/dL (7.0-18.0); Calcium 9.4 mg/dL (8.5-10.1); Carbon Dioxide 26.7 mmol/L (21.0-32.0); Chloride 104 mmol/L (98-107); Estimated GFR (African America 37 (>=60 mL/min/1.73m^2); Estimated GFR (Non-African Ame 30 (>=60 mL/min/1.73m^2); Glucose 110 mg/dL (74-106); Potassium 5.0 mmol/L (3.5-5.1); Sodium 140 mmol/L (136-145)
[2025-03-29 16:52] LABS: Hematocrit 40.1 % (42.0-54.0); Hemoglobin 13.4 g/dL (14.0-18.0); Immature Granulocytes Abs Auto 0.05 10^3/uL (0.00-0.03); Immature Granulocytes Pct Auto 0.6 % (0.0-0.5); Lymphocytes Absolute Auto 0.9 10^3/uL (1.2-3.8); Mean Corpuscular HGB Conc 33.4 g/dL (29.9-35.2); Mean Corpuscular Hemoglobin 30.0 pg (25.9-34.0); Mean Corpuscular Volume 89.7 fL (80.0-94.0); Platelet Count 316 10^3/uL (150-450); Red Blood Count 4.47 10^6/uL (4.70-6.10); Reticulocyte Pct Auto 1.36 % (0.60-3.10); White Blood Count 9.0 10^3/uL (4.0-11.0)
[2025-03-29 16:56] LABS: Iron 106.0 ug/dL (65.0-175.0); Percent Iron Saturation 26.7 %; Total Iron Binding Capacity 397.0 ug/dL (250.0-450.0)
[2025-03-29 17:09] LABS: Ferritin 81.0 ng/mL (26.0-388.0)
[2025-03-31 07:07] LABS: Vitamin B12 321 pg/mL (232-1245)
[2025-04-01 15:08] LABS: Albumin 3.9 g/dL (2.9-4.4); Alpha-1-Globulin 0.3 g/dL (0.0-0.4); Alpha-2-Globulin 0.8 g/dL (0.4-1.0); Gamma Globulin 0.8 g/dL (0.4-1.8); Immunoglobulin A, Qn, Serum 50 mg/dL (61-437)
== END 2025-04-01 23:59 | disposition home or self-care (01) ==
LOC: HEMC 15:24
PROVIDERS: PCP Family Medicine; Visit Provider Internal Medicine Hematology & Oncology
DX: I26.09 Other pulmonary embolism with acute cor pulmonale (principal); Z85.46 Personal history of malignant neoplasm of prostate; Z90.79 Acquired absence of other genital organ(s); R06.00 Dyspnea, unspecified; R07.9 Chest pain, unspecified; E27.1 Primary adrenocortical insufficiency; Z79.01 Long term (current) use of anticoagulants
CPT/HCPCS: 36415; 80048; 81003; 82607; 82728; 82784; 83540; 83550; 83615; 84155; 84165; 85025; 85045; 86334; 87086; G0463

== ENCOUNTER 2025-03-29 19:32 | Outpatient (REF) | payer MEDICARE, SELFPAY ==
--- OUTSIDE RECORDS SUMMARY | 2025-03-15 11:00 | XMS_ITS | Encounter Summary ---
Author Organization [facility] Healthcare Address [address] [place] [address] Care Team Providers Care Meat Team Lead Name Role Phone Jackie Hurtado MD Primary Care Provider Ana Avilez NP Unavailable [phone] Danielle Hawkins MD Unavailable Reason for Visit * ReasonCommentsHospital Follow-up Encounter Details DateTypeDepartmentCare Team (Latest Contact Info)Bmykkicrfmn55/14/2025 11:00 AM EDTOffice Visit [facility] [address] [place] [id number] Jackie Hurtado MD [address] [place] [address] Multiple subsegmental pulmonary emboli without acute cor pulmonale (HCC) (Primary Dx); HTN (hypertension), benign; Churchill disease (HCC); Chronic kidney disease, stage 3b ([facility]-HCC) Social History Tobacco UseTypesPacks/DayYears UsedDateSmoking Tobacco: NeverSmokeless Tobacco: NeverAlcohol UseStandard Drinks/WeekCommentsYes2 (1 standard drink = 0.6 oz pure alcohol)caffeine intake: 1 cup [id number] Health LiteracyAnswerDate RecordedHow often do you need to have someone help you when you read instructions, pamphlets, or other written material from your doctor or pharmacy?Never 09/20/2024Humiliation, Afraid, Rape, and Kick questionnaireAnswerDate Recorded Within the last year, have you been afraid of your partner or ex-partner?No 09/20/2024Within the last year, have you been humiliated or emotionally abused in other ways by your partner or ex-partner?No09/20/2024Within the last year, have you been kicked, hit, slapped, or otherwise physically hurt by your partner or ex-partner?No09/20/2024Within the last year, have you been raped or forced to have any kind of sexual activity by your partner or ex-partner?No09/20/2024 Social Connection and Isolation PanelAnswerDate RecordedIn a typical week, how many times do you talk on the phone with family, friends, or neighbors?Three times a week09/20/2024How often do you get together with friends or relatives? Twice a week09/20/2024How often do you attend zoroastrian or oriental orthodox services?More than 4 times per year09/20/2024Do you belong to any clubs or organizations such as zoroastrian groups, unions, fraternal or athletic groups, or school groups?Yes 09/20/2024How often do you attend meetings of the clubs or organizations you belong to?Patient deeqrtkd02/21/2025re you , , , , never , or living with a partner?Goyeaca3409/20/2024UDIT-C AnswerDate RecordedQ1: How often do you have a drink containing alcohol?2-3 times a week09/20/2024Q2: How many drinks containing alcohol do you have on a typical day when you are drinking?1 or Q3: How often do you have six or more drinks on one occasion?Never09/20/2024Overall Financial Resource Strain (CARDIA)AnswerDate RecordedHow hard is it for you to pay for the very basics like food, housing, medical care, and heating?Not hard at all09/20/2024PHQ-2 AnswerDate RecordedPatient Health Questionnaire-2 Lfolv544[facility] [place] of Occupational [facility] - Occupational Stress QuestionnaireAnswerDate RecordedDo you feel stress - tense, restless, nervous, or anxious, or unable to sleep at night because yourmind is troubled all the time - these days?To some byxbgi4809/20/2024Exercise Vital SignAnswerDate RecordedOn average, how many days per week do you engage in moderate to strenuous exercise (like a brisk walk)?5 days09/20/2024On average, how many minutes do you engage in exercise at this level?20 min09/20/2024Hunger Vital SignAnswerDate RecordedWithin the past 12 months, you worried that your food would run out before you got the money to buy more.Never true09/20/2024Within the past 12 months, the food you bought just didn't last and you didn't have money to get more.Never true09/20/2024PRAPARE - TransportationAnswerDate RecordedIn the past 12 months, has lack of transportation kept you from medical appointments or from getting medications?No 09/20/2024In the past 12 months, has lack of transportation kept you from meetings, work, or from getting things needed for daily living?No09/20/2024 Housing Stability Vital SignAnswerDate RecordedIn the last 12 months, was there a time when you were not able to pay the mortgage or rent on time?No02/19/2023In the last 12 months, how many places have you lived?In the last 12 months, was there a time when you did not have a steady place to sleep or slept [place] (including now)?02/19/2023Housing Stability Vital SignAnswerDate RecordedIn the last 12 months, was there a time when you were not able to pay the mortgage or rent on time?No09/20/2024In the past 12 months, how many times have you moved where you were living?t any time in the past 12 months, were you homeless or living in a residential (including now)?No09/20/2024Sex and Gender InformationValueDate RecordedSex Assigned at BypvjQkyt69/08/2023 9:05 AM EDTLegal EspGzqw5708/14/2022 7:25 PM EDTGender PvqjcojtGgez69/08/2023 9:05 AM EDTSexual QizrtgzcznyLrgdboyu41/08/2023 9:05 AM EDTdocumented as of this encounter Last Filed Vital Signs Vital SignReadingTime TakenCommentsBlood Wnqldarp950/7403/15/2025 11:06 AM EDT Iajjq53403/14/2025 11:06 AM EDTTemperature--Respiratory Rate--Oxygen Saturation 95%03/15/2025 11:06 AM EDTInhaled Oxygen Concentration--Iglfrt35.3 kg (208 lb) 03/15/2025 11:06 AM ZFJYgttxu097.9 cm (6')03/15/2025 11:06 AM EDTBody Mass Index 28.211 11:06 AM EDTdocumented in this encounter Progress Notes * Jackie Hurtado MD - 03/15/2025 12:57 PM EDTAssociated Problem(s): History of prostate cancer PSA < 0.01 in 12/23. * Jackie Hurtado MD - 03/15/2025 11:00 AM EDTAssociated Problem(s): HTN (hypertension), benign BP controlled on the hydrochlorothiazide only. * Jackie Hurtado MD - 03/15/2025 11:00 AM EDTAssociated Problem(s): Churchill disease (HCC) Sees Dr Sky. On hydrocortisone. * Jackie Hurtado MD - 03/15/2025 11:00 AM EDTAssociated Problem(s): Chronic kidney disease, stage 3b (CMS-HCC) Follows with nephrology. * Jackie Hurtado MD - 03/15/2025 11:00 AM EDT Images from the original note were not included. Subjective ?Quick Links Last Note in Specialty Snapshot Edit RFV/CC Edit Screenings Current [facility] Patient ID: Tello Braun is a 65 y.o. male who presents for Hospital Follow-up. HPI Flowsheet Row Patient Outreach from 03/10/2025 in [facility] with Jackie Wan RN Hospital Information ED, Hospital or Jail Facility Discharge? Hospital Patient has been contacted within two business days of discharge Yes Diagnosis DX: Pulmonary Embolism, acute cor pulmonale presence, Renal Failure, unspec. Discharge Date 03/09/25 Discharged To: Home Setting Discharge Hospital [facility] Engagement Call Start Time 1135 Admission Date 03/06/25 Medications Discharge medications reviewed and reconciled from hospital? Yes [He was dc with new prescriptions:Eliquis 5mg - for 6 days take 2 tabs twice daily then after 6 days, take 1 tab twice daily Weymjqmg33at 1 every 6 hours prn pain Pregabalin 50mg 1 twice daily] Is the patient having any side effects they believe may be caused by any medication additions or changes? No Does the patient have all medications ordered at discharge? Yes Nursing Interventions Nurse provided patient education Is the patient taking all medications as directed (includes completed medication regime)? Yes Nursing Interventions Nurse notified pharmacy for assistance Appointments Does the patient have a primary care provider? Yes [appt with Dr Hurtado 03/15/25 at 11am] Nursing Interventions Verified appointment date/time/provider Does the patient have any upcoming specialty appointments? Yes [kidney doctor at [facility] 03/14/25] Nursing Interventions Advised patient to keep appointment Self Management Does patient have home health? no Patient Teaching Does the patient have access to their discharge instructions? Yes Nursing Interventions Reviewed instructions with patient What is the patient's perception of their health status since discharge? Improving Is the patient/caregiver able to teach back the hierarchy of who to call/visit for symptoms/problems? PCP, Specialist, Home Health nurse, Urgent Care, ED, 911 Yes Wrap Up Wrap Up Additional Comments Pt to [facility] for pleuratic chest pain. He was eval and admitted 03/06/25-03/09/25. He was eval, treated and dc to home. DX: Pulmonary Embolism, acute cor pulmonale presence, Renal Failure, unspec. He was dc with new prescriptions: Eliquis 5mg - for 6 days take 2 tabs twice daily then after 6 days, take 1 tab twice daily Tramadol 50mg 1 every 6 hours prn pain Pregabalin 50mg1 twice daily He is to follow up with Kidney doctor at [facility] He is to follow up with hematology as outpt. Call End Time 1149 History of Present Illness The patient is a 65-year-old male who presents for blood clots and breathing issues. He reports experiencing blood clots on both sides of his body, with significant discomfort on one side. The onset of this discomfort was sudden, occurring during a car show, and it escalated in severity. He describes the pain as radiating up and down his arm, accompanied by chest pain and lightheadedness. He sought medical attention at [facility], where tests revealed the presence of bloodclots exerting pressure on an unspecified area. The cause of these clots remains undetermined. He has an upcoming appointment with a clerical administrator on 03/29/2025, who plans to conduct seven different tests. During his hospital stay, he underwent leg tests, which did not reveal any clots. He was informed that the clots could be hereditary, given his family history of similar conditions. He has no known history of irregular heart rhythms, except for one instance when he was administered a double dose of blood pressure medication, which has since been discontinued without further issues. He is currently on Eliquis and was advised that he may need to continue this medication for the rest of his life. He has a long-standing history of breathing issues, which are exacerbated when he lies on his back,leading to difficulty in sleeping in this position. He also experiences phlegm production during chest colds. His oxygen saturation levels dropped to 87 during his hospital stay, but this was attributed to his use of pain medication and fatigue. His levels improved upon ambulation. His steroid dosage was not increased during his hospital stay, and he did not experience any related issues. He is a prostate cancer survivor, having been diagnosed 2.5 years ago. His PSA level has consistently been 0.01. He is up to date with his colon cancer screening, having undergone a Cologuard test a year ago, which returned negative results. Social History: Sleep: Prefers sleeping on his sides or sitting up due to breathing issues. PAST SURGICAL HISTORY: Prostate cancer surgery 2.5 years ago Kidney stones FAMILY HISTORY His sister has blood clots and is very overweight. He has cousins on his mother's side with blood clots. There is a history of prostate cancer on his mother's side, with two cousins around the same age having had it. One cousin from it, and others have had surgeries to address it. His mother's side of the family has had lots of cancer. 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 Avoid pulling in long tables of results. Comment on relevant results to support your medical decision making. BP 128/74 Pulse 104 Ht 6' Wt 208 lb SpO2 95% BMI 28.21 kg/m?? Physical Exam Physical Exam General Appearance: Normal. Vital signs: Within normal limits. HEENT: Within normal limits. Respiratory: Clear to auscultation, no wheezing, rales or rhonchi. Cardiovascular: Regular rate and rhythm, no murmurs, rubs, or gallops. Extremities: no edema, palpable pulses. Skin: Warm and dry, no rash. Neurological: Normal. Psychiatric: Normal. ?Quick Links Full Problem List Allergy Cardiology GI Headache Hypertension Thyroid Assessment & Plan Multiple subsegmental pulmonary emboli without acute cor pulmonale (HCC) Sees hematology on the . HTN (hypertension), benign BP controlled on the hydrochlorothiazide only. Churchill disease (HCC) Sees Dr Sky. On hydrocortisone. Chronic kidney disease, stage 3b ([facility]-HCC) Follows with nephrology. Assessment & Plan 1. Blood clots: - He reports experiencing blood clots on both sides, with significant discomfort starting during a car show and worsening over time. - Tests at the hospital confirmed blood clots pressing against structures. - He has an appointment with Dr. Rodgers, a clerical administrator, on 03/29/2025, for further evaluation, including seven different tests. - He is currently on Eliquis and will likely need to continue this medication indefinitely due to the pulmonary embolisms (PEs). He is advised to check [employer] and [employer] for potential co-pay cards or prescription assistance to manage the cost of Eliquis. 2. Prostate cancer: - His PSA levels have consistently been 0.01. - He is up to date on colon cancer screening with a Cologuard test done a year ago, which was negative. 3. Blood pressure management: - His blood pressure is well-controlled. [1] albuterol HFA 90 mcg/act inhaler apixaban (Eliquis) 5 MG tablet atorvastatin (Lipitor) 20 MG tablet Eliquis DVT/PE Starter Pack 5 MG tablet therapy pack famotidine (Pepcid) 20 MG tablet fluticasone (Flonase) 50 MCG/ACT nasal spray hydroCHLOROthiazide (HYDRODiuril) 25 MG tablet hydrocortisone (Cortef) 10 MG tablet pregabalin (Lyrica) 50 MG capsule sertraline (Zoloft) 25 MG tablet tadalafil (Cialis) 5 MG tablet tiZANidine (Zanaflex) 4 MG tablet traMADol (Ultram) 50 MG tablet documented in this encounter Plan of Treatment Not on file documented as of this encounter Visit Diagnoses Diagnosis Multiple subsegmental pulmonary emboli without acute cor pulmonale (HCC)- Primary HTN (hypertension), benign Essential hypertension, benign Churchill disease (HCC) Glucocorticoid deficiency Chronic kidney disease, stage 3b (CMS-HCC) documented in this encounter Additional Health Concerns AssessmentNoted TimePHQ-9 Depression Total Score: 9:00 AM EDT documented as of this encounter Care Teams Team MemberRelationshipSpecialtyStart DateEnd Date Jackie Hurtado MD [address] [place], [place] [id number] PCP - GeneralFamily Medicine12/26/22 Danielle Hawkins MD [address] [place] [address] PCP - Medical [place]06/02/2511 Ana Avilez NP [address] [place], [place] [id number] Nurse PractitionerFamily Medicine02/23/24documented as of this encounter
--- OUTSIDE RECORDS SUMMARY | 2025-03-21 10:00 | XMS_ITS | Encounter Summary ---
Author Organization [facility] Address [address] [place] [address] Care Team Providers Care Fiber Designer Name Role Phone Jackie Hurtado MD Primary Care Provider [phone] Ana Avilez NP Unavailable [phone] Danielle Hawkins MD Unavailable Reason for Visit * ReasonCommentsInjectionsPT is here today requesting injection Rt foot, pain started back up about 1 week ago. SS: 9 Encounter Details DateTypeDepartmentCare Team (Latest Contact Info)Xbtbfagboge19/20/2025 10:00 AM EDTOffice Visit [facility] [address] [place] [address] Galen Morgan, DPAlex [address] [place], [place] [id number] Primary osteoarthritis of right ankle (Primary Dx); Arthralgia of right foot Social History Tobacco UseTypesPacks/DayYears UsedDateSmoking Tobacco: NeverSmokeless Tobacco: Never Tobacco Cessation:Counseling Given: Not Answered Alcohol UseStandard Drinks/WeekCommentsYes2 (1 standard drink = 0.6 oz pure alcohol)caffeine intake: 1 cup [id number] Health LiteracyAnswerDate RecordedHow often do you need [...] Twice a week09/20/2024How often do you attend sabianism or yarsani services?More than 4 times per year09/20/2024Do you belong to any clubs or organizations such as sabianism groups, unions, fraNephosity or athletic groups, or school groups?Yes 09/20/2024How often do you attend meetings of the clubs or organizations you belong to?Patient ehgrjagf46/21/2025re you , , , , never , or living with a partner?Wjqgbgo2409/20/2024UDIT-C AnswerDate RecordedQ1: How often do you have [...] hard at all09/20/2024PHQ-2 AnswerDate RecordedPatient Health Questionnaire-2 Gyqdc194Fin[facility] [place] of Occupational Health - Occupational Stress QuestionnaireAnswerDate RecordedDo you feel stress - tense, restless, nervous, or anxious, or unable to sleep at night because yourmind is troubled all the time - these days?To some yqjfbc9009/20/2024Exercise Vital SignAnswerDate RecordedOn average, how many days [...] steady place to sleep or slept in [facility] (including now)?02/19/2023Housing Stability Vital SignAnswerDate RecordedIn the [...] now)?No09/20/2024Sex and Gender InformationValueDate RecordedSex Assigned at LqaoiNvdm64/08/2023 9:05 AM EDTLegal XhxWgzc1108/14/2022 7:25 PM EDTGender EttytcdoVxjo49/08/2023 9:05 AM EDTSexual PvrkilhdzoxMjbpwunq34/08/2023 9:05 AM EDTdocumented as of this encounter Last Filed Vital Signs Vital SignReadingTime TakenCommentsBlood Pressure--Pulse--Temperature-- Respiratory Rate--Oxygen Saturation--Inhaled Oxygen Concentration--Nginmf63.4 kg (206 lb)03/21/2025 9:51 AM IMEVdlcrx615.9 cm (6')03/21/2025 9:51 AM EDTBody Mass Index27.9403/21/2025 9:51 AM EDTdocumented in this encounter Progress Notes * Galen Morgan, MELODY - 03/21/2025 10:00 AM EDT Images from the original note were not included. Subjective Patient ID: Tello Braun is a 65 y.o. male who presents for Injections (PT is here today requesting injection Rt foot, pain started back up about 1 week ago. /SS: 9). HPI Established patient presents to clinic with concern of recurrent right foot pain. I saw him previously a few months ago and performed cortisone injection to the 1st MTP for hallux limitus/rigidus. Patient had complete resolution of symptoms for about 2 months. Over the last week symptoms have returned. Described as sharp, aching in nature. Review of Systems Constitutional: Negative for activity change and appetite change. Respiratory: Negative for chest tightness and shortness of breath. Cardiovascular: Negative for chest pain. Musculoskeletal: Positive for arthralgias and gait problem. Skin: Negative for color change and wound. Neurological: Negative for weakness and numbness. Psychiatric/Behavioral: Negative for agitation and behavioral problems. Hematological: Does not bruise/bleed easily. Endocrine: Negative for cold intolerance and heat intolerance. Allergic/Immunologic: Negative for immunocompromised state. Past medical History Past Medical History: Diagnosis Date [place] disease (HCC) 12/24/2022 Cardiac arrhythmia 12/24/2022 Cervical stenosis of spinal canal Corticoadrenal insufficiency (HCC) 12/24/2022 Current chronic use of systemic steroids Graves disease Graves' disease in remission 12/24/2022 Headache, tension-type HTN (hypertension), benign 12/24/2022 Kidney stones 12/24/2022 Kidney stones Migraines Myalgia Neuropathy Paresthesia of skin 12/24/2022 PVCs (premature ventricular contractions) 12/24/2022 Radiculopathy of cervical spine Seasonal allergies 12/24/2022 Secondary adrenal insufficiency (HCC) Shingles Vitamin D deficiency Medications Current Outpatient Medications: albuterol HFA 90 mcg/act inhaler, Inhale 2 puffs every 6 (six) hours if needed for wheezing, Disp: 18 g, Rfl: 0 apixaban (Eliquis) 5 MG tablet, Take 5 mg by mouth in the morning and 5 mg before bedtime., Disp: ,Rfl: atorvastatin (Lipitor) 20 MG tablet, TAKE 1 TABLET BY MOUTH DAILY, Disp: 90 tablet, Rfl: 1 Eliquis DVT/PE Starter Pack 5 MG tablet therapy pack, skip day 1 then TAKE 2 TABLETS BY MOUTH TWICEDAILY FOR 6 DAYS, then TAKE 1 TABLET BY MOUTH TWICE DAILY THEREAFTER, Disp: , Rfl: famotidine (Pepcid) 20 MG tablet, Take 1 tablet (20 mg) by mouth Daily, Disp: 90 tablet, Rfl: 0 fluticasone (Flonase) 50 MCG/ACT nasal spray, Administer 1 spray into each nostril Daily Shake gently. Before first use, prime pump. After use, clean tip and replace cap., Disp: 48 g, Rfl: 1 hydroCHLOROthiazide (HYDRODiuril) 25 MG tablet, TAKE 1 TABLET BY MOUTH IN THE MORNING, Disp: 90 tablet, Rfl: 1 hydrocortisone (Cortef) 10 MG tablet, Take 1 tablet (10 mg) by mouth in the morning and 1 tablet (10 mg) in the evening and 1 tablet (10 mg) before bedtime. (Patient taking differently: Take 10 mg bymouth in the morning and 10 mg in the evening and 10 mg before bedtime. Taking 20mg in am and 10mg in the evening.), Disp: 270 tablet, Rfl: 1 pregabalin (Lyrica) 50 MG capsule, Take 50 mg by mouth in the morning and 50 mg before bedtime., Disp: , Rfl: sertraline (Zoloft) 25 MG tablet, Take 1 tablet (25 mg) by mouth Daily, Disp: 90 tablet, Rfl: 1 tadalafil (Cialis) 5 MG tablet, , Disp: , Rfl: tiZANidine (Zanaflex) 4 MG tablet, TAKE 1 TABLET BY MOUTH EVERYDAY AT BEDTIME, Disp: 90 tablet, Rfl: 1 traMADol (Ultram) 50 MG tablet, Take 50 mg by mouth every 6 (six) hours if needed for severe pain, Disp: , Rfl: No current facility-administered medications for this visit. Allergies Patient has no known allergies. Past Surgical History Past Surgical History: Procedure Laterality Date COLONOSCOPY 2014 in [place] EXCISIONAL HEMORRHOIDECTOMY 09/27/2024 HEMORRHOID SURGERY 09/27/2024 KNEE ARTHROSCOPY W/ DEBRIDEMENT Left x2 NERVE SURGERY Right right elbow nerve removed. PROSTATECTOMY 07/31/2022 Family History Family History Problem Relation Name Age of Onset Breast cancer Mother Gaye Emphysema Mother Gaye Heart failure Mother Gaye Cancer Mother Gaye Kidney failure Father Gaurang Hypertension Father Gaurang Kidney disease Father Gaurang Diabetes Sister x 1 Obesity Sister x 1 Asthma Sister x 1 Obesity Brother x 2 Asthma Brother Leo and Nick Diabetes Brother Nick Diabetes Brother Nick Braun Obesity Brother Nick Braun Asthma Brother Leo and Nick Diabetes Brother Nick Objective Physical Exam HENT: Head: Normocephalic and atraumatic. Cardiovascular: Pulses: Normal pulses. Pulmonary: Effort: Pulmonary effort is normal. No respiratory distress. Abdominal: Palpations: There is no mass. Musculoskeletal: Cervical back: No rigidity. Comments: Weightbearing examination reveals pes planus morphology. He is able to perform a double heel rise test but this aggravates the right great toe joint. Right foot: Isolated and maximal tenderness over the 1st MTP both dorsally over the joint as well as along the sesamoid complex. There is crepitus with range of motion of the 1st MTP. Range of motionlimited to 20 degrees of dorsiflexion. There is tenderness on forced plantar flexion and maximum dorsiflexion. Positive grind test of the 1st MTP. Mild edema, erythema in this area consistent with bur sitis/arthritis. Muscle strength 5/5 for all quadrants without tenderness. Ankle dorsiflexion 0 degrees with the knee extended, flexed. Skin: Capillary Refill: Capillary refill takes less than 2 seconds. Findings: No lesion or rash. Neurological: Mental Status: He is alert. Comments: No loss of protective sensation, gross sensation intact. Psychiatric: Mood and Affect: Mood normal. Behavior: Behavior normal. 08/03/2024: Three views [facility] are nonweightbearing of the right foot. Reveal degenerative changes of the 1st MTP with joint space narrowing, subchondral sclerosis, mild periarticular osteophytes.The rest of the joints I can not comment on as they are nonweightbearing. No fractures or dislocations appreciated. Assessment/Plan ICD-10-CM 1. Primary osteoarthritis of right ankle M19.071 betamethasone acetate- betamethasone sodium phosphate (Celestone) injection 3 mg triamcinolone acetonide (Kenalog-40) injection 20 mg 2. Arthralgia of right foot M25.571 Patient was examined and evaluated. I reviewed previous imaging from [facility] which shows degenerative changes of the 1st MTP. Unfortunately he has had recurrent flare of hallux rigidus of the right 1st MTP. He did respond very well to cortisone injection previously. He would like to move forward with a 2nd injection today. Informed consent was obtained. Utilizing aseptic technique I injected 1 mL of0.5 percent Marcaine plain, 20 mg of Kenalog and 3 mg of Celestone to the 1st MTP, right foot. Patient tolerated the procedure well and a band-aid was applied over the injection site. I have recommended 2 Tylenol and 2 Advil every 8 hours as needed for the next day to help reduce any steroid flare reaction. He will continue with daily stretches and continued use of power step orthotics. Recommendsupportive shoes and avoid barefoot walking. At this time we will follow up with him on an as-needed basis. If he requires frequent injections or if he stops responding to the injections and I wouldrecommend considering surgical intervention. For now he is happy with how things are progressing with the injections. This note was created with the assistance of a speech recognition program. While intending to generate a timely document that accurately reflects the content of the visit, no guarantee can be provided that every grammatical or spelling mistake has been or will be identified or corrected. Thank you for your understanding. Galen Morgan DPM documented in this encounter Plan of Treatment Not on file documented as of this encounter Visit Diagnoses Diagnosis Primary osteoarthritis of right ankle- Primary Arthralgia of right foot documented in this encounter Administered Medications Medication OrderMAR ActionAction DateDoseRateSite betamethasone acetate-betamethasone sodium phosphate (Celestone) injection 3 mg 3 mg, Intra-articular, Once, On Fri03/21/25 at 1015, For 1 dose Indications:Primary osteoarthritis of right eghnvIbdqs85/20/2025 10:56 AM EDT3 mg triamcinolone acetonide (Kenalog-40) injection 20 mg 20 mg, Intra-articular, Once, On Fri03/21/25 at 1015, For 1 dose Indications:Primary osteoarthritis of right tpxaqPxklq69/20/2025 10:56 AM EDT20 mgdocumented in this encounter Additional Health Concerns AssessmentNoted TimePHQ-9 Depression Total Score: 9:00 AM EDT documented as of this encounter Care Teams Team MemberRelationshipSpecialtyStart DateEnd Date Jackie Hurtado MD [address] [place], [place] [id number] PCP - GeneralFamily Medicine12/26/22 Danielle Hawkins MD [address] [place], [place] [id number] PCP - Medical [facility]06/02/2511 Ana Avilez NP [address] [place], [place] [id number] Nurse PractitionerFamily Medicine02/23/24documented as of this encounter
--- OUTSIDE RECORDS SUMMARY | 2025-03-29 19:38 | XMS_ITS | Encounter Summary ---
Author Organization [facility] Address [address] [place] [address] Care Team Providers Care Durability Technician Name Role Phone Jackie Hurtado MD Primary Care Provider [phone] Ana Avilez NP Unavailable [phone] Danielle Hawkins MD Unavailable Encounter Details DateTypeDepartmentCare Team (Latest Contact Info)Dyfzfaruaao71/14/2025amboo flowsheet [facility] Family Medicine [address] [place] [id number] Jackie Hurtado MD [address] [place] [address] Social History Tobacco UseTypesPacks/DayYears UsedDateSmoking Tobacco: NeverSmokeless Tobacco: NeverAlcohol UseStandard Drinks/WeekCommentsYes2 (1 standard drink = 0.6 oz pure alcohol)caffeine intake: 1 cup [id number] Health LiteracyAnswerDate RecordedHow often do you need [...] Twice a week09/20/2024How often do you attend cheondoism or adventism services?More than 4 times per year09/20/2024Do you belong to any clubs or organizations such as cheondoism groups, unions, fraLoveIt or athletic groups, or school groups?Yes 09/20/2024How often do you attend meetings of the clubs or organizations you belong to?Patient cljoykks58/21/2025re you , , , , never , or living with a partner?Bqlqobx6909/20/2024UDIT-C AnswerDate RecordedQ1: How often do you have [...] hard at all09/20/2024PHQ-2 AnswerDate RecordedPatient Health Questionnaire-2 Hvebc863Fin[facility] [place] of Occupational Health - Occupational Stress QuestionnaireAnswerDate RecordedDo you feel stress - tense, restless, nervous, or anxious, or unable to sleep at night because yourmind is troubled all the time - these days?To some uhegaa0709/20/2024Exercise Vital SignAnswerDate RecordedOn average, how many days per week do you engage in moderate to strenuous exercise (like a brisk walk)?5 days09/20/2024On average, how many minutes do you engage in exercise at this level?20 min04/21/2025Hunger Vital SignAnswerDate RecordedWithin the past 12 months, [...] steady place to sleep or slept in [facility] (including now)?No02/19/2023Housing Stability Vital SignAnswerDate RecordedIn the last 12 months, was there a time when you were not able to pay the mortgage or rent on time?No09/20/2024In the past 12 months, how many times have you moved where you were living?t any time in the past 12 months, were you homeless or living in a [place] [facility] [place] (including now)?No09/20/2024Sex and Gender InformationValueDate RecordedSex Assigned at RqohmWxoi80/08/2023 9:05 AM EDTLegal EekYxle6008/14/2022 7:25 PM EDTGender WzhifezoZmvx33/08/2023 9:05 AM EDTSexual XgrckybexwsFnuevhsx27/08/2023 9:05 AM EDTdocumented as of this encounter Plan of Treatment Not on file documented as of this encounter Visit Diagnoses Not on filedocumented in this encounter Additional Health Concerns AssessmentNoted TimePHQ-9 Depression Total Score: 9:00 AM EDT documented as of this encounter Care Teams Team MemberRelationshipSpecialtyStart DateEnd Date Jackie Hurtado MD [address] [facility] [place], [place] [id number] PCP - GeneralFamily Medicine12/26/22 Danielle Hawkins MD [address] [facility] [place] [address] PCP - Medical [place]06/02/2511 Ana Avilez NP [address] [facility] [place], [place] [phone] Nurse PractitionerFamily Medicine02/23/24documented as of this encounter
--- OUTSIDE RECORDS SUMMARY | 2025-03-29 19:38 | XMS_ITS | Encounter Summary ---
Author Organization [facility] Address [address] [place] [address] Care Team Providers Care Vulcanizing Press Operator Name Role Phone Jackie Hurtado MD Primary Care Provider [phone] Ana Avilez NP Unavailable Danielle Hawkins MD Unavailable Encounter Details DateTypeDepartmentCare Team (Latest Contact Info)Tomobtkspzl62/14/2025Travel Social History Tobacco UseTypesPacks/DayYears UsedDateSmoking Tobacco: NeverSmokeless Tobacco: NeverAlcohol UseStandard Drinks/WeekCommentsYes2 (1 standard drink = 0.6 oz pure alcohol)caffeine intake: 1 cup [id number] Health LiteracyAnswerDate RecordedHow often do you need [...] Twice a week09/20/2024How often do you attend anglican or mormonism services?More than 4 times per year09/20/2024Do you belong to any clubs or organizations such as anglican groups, unions, fraternal or athletic groups, or school groups?Yes 09/20/2024How often do you attend meetings of the clubs or organizations you belong to?Patient /21/2025re you , , , , never , or living with a partner?Nxetlux1609/20/2024UDIT-C AnswerDate RecordedQ1: How often do you have [...] hard at all09/20/2024PHQ-2 AnswerDate RecordedPatient Health Questionnaire-2 Xtgxc788Finblue [facility] hospital [place] of Occupational Health - Occupational Stress QuestionnaireAnswerDate RecordedDo you feel stress - tense, restless, nervous, or anxious, or unable to sleep at night because yourmind is troubled all the time - these days?To some ygxogi2309/20/2024Exercise Vital SignAnswerDate RecordedOn average, how many days [...] steady place to sleep or slept in [facility] (including now)?No02/19/2023Housing Stability Vital SignAnswerDate RecordedIn the last 12 months, was there a time when you were not able to pay the mortgage or rent on time?No09/20/2024In the past 12 months, how many times have you moved where you were living?t any time in the past 12 months, were you homeless or living in a nursing home (including now)?No09/20/2024Sex and Gender InformationValueDate RecordedSex Assigned at JknpgMflu22/08/2023 9:05 AM EDTLegal OafWhjv9708/14/2022 7:25 PM EDTGender JfkkxieiUjdf26/08/2023 9:05 AM EDTSexual WovyyoqdzqsNdapcaxz75/08/2023 9:05 AM EDTdocumented as of this encounter Plan of Treatment Not on file documented as of this encounter Visit Diagnoses Not on filedocumented in this encounter Additional Health Concerns AssessmentNoted TimePHQ-9 Depression Total Score: 9:00 AM EDT documented as of this encounter Care Teams Team MemberRelationshipSpecialtyStart DateEnd Date Jackie Hrutado MD [address] [place] [address] PCP - GeneralFamily Medicine12/26/22 Danielle Hawkins MD [address] [place], [place] [phone] PCP - Medical [place] 06/02/2511 Ana Avilez NP [address] [place], [place] [phone] Nurse PractitionerFamily Medicine02/23/24documented as of this encounter
--- OUTSIDE RECORDS SUMMARY | 2025-03-29 19:38 | XMS_ITS | Encounter Summary ---
Author Organization [facility] Address [address] [place] [address] Care Team Providers Care School Crossing Guard Supervisor Name Role Phone Jackie Hurtado MD Primary Care Provider [phone] Ana Avilez NP Unavailable [phone] Danielle Hawkins MD Unavailable Encounter Details DateTypeDepartmentCare Team (Latest Contact Info)Iocpdicchmf13/20/2025Travel Social History Tobacco UseTypesPacks/DayYears UsedDateSmoking Tobacco: NeverSmokeless Tobacco: NeverAlcohol UseStandard Drinks/WeekCommentsYes2 (1 standard drink = 0.6 oz pure alcohol)caffeine intake: 1 cup hysjpZ1057 Health LiteracyAnswerDate RecordedHow often do you need [...] Twice a week09/20/2024How often do you attend rastafari or mu-ism services?More than 4 times per year09/20/2024Do you belong to any clubs or organizations such as rastafari groups, unions, fraternal or athletic groups, or school groups?Yes 09/20/2024How often do you attend meetings of the clubs or organizations you belong to?Patient ubukfjag79/21/2025re you , , , , never , or living with a partner?Zvtmzzr7009/20/2024UDIT-C AnswerDate RecordedQ1: How often do you have [...] hard at all09/20/2024PHQ-2 AnswerDate RecordedPatient Health Questionnaire-2 Afcje078Fin[facility] hospital [place] of Occupational Health - Occupational Stress QuestionnaireAnswerDate RecordedDo you feel stress - tense, restless, nervous, or anxious, or unable to sleep at night because yourmind is troubled all the time - these days?To some jdgilf4609/20/2024Exercise Vital SignAnswerDate RecordedOn average, how many days [...] were you homeless or living in a snf (including now)?No09/20/2024Sex and Gender InformationValueDate RecordedSex Assigned at HfmvnTxck85/08/2023 9:05 AM EDTLegal XlbHxij7608/14/2022 7:25 PM EDTGender SwgzkczkYniw24/08/2023 9:05 AM EDTSexual BqxtnqbxiluXvcaxqwq86/08/2023 9:05 AM EDTdocumented as of this encounter Plan of Treatment Not on file documented as of this encounter Visit Diagnoses Not on filedocumented in this encounter Additional Health Concerns AssessmentNoted TimePHQ-9 Depression Total Score: 9:00 AM EDT documented as of this encounter Care Teams Team MemberRelationshipSpecialtyStart DateEnd Date Jackie Hurtado MD [address] [place] [address] PCP - GeneralFamily Medicine12/26/22 Danielle Hawkins MD [address] [place], [place] [phone] PCP - Medical [place] 06/02/2511 Ana Avilez NP [address] [place], [place] [phone] Nurse PractitionerFamily Medicine02/23/24documented as of this encounter
--- OUTSIDE RECORDS SUMMARY | 2025-03-29 19:38 | XMS_ITS | Encounter Summary ---
Author Organization [facility] Address [address] [place] [address] Care Team Providers Care Fourchette Sewer Name Role Phone Jackie Hurtado MD Primary Care Provider [phone] Ana Avilez NP Unavailable Danielle Hawkins MD Unavailable Encounter Details DateTypeDepartmentCare Team (Latest Contact Info)Pmjiuxtqtjd37/17/2025Travel Social History Tobacco UseTypesPacks/DayYears UsedDateSmoking Tobacco: NeverSmokeless Tobacco: NeverAlcohol UseStandard Drinks/WeekCommentsYes2 (1 standard drink = 0.6 oz pure alcohol)caffeine intake: 1 cup [id number] Health LiteracyAnswerDate RecordedHow often do you need [...] Twice a week09/20/2024How often do you attend hinduism or nondenominational services?More than 4 times per year09/20/2024Do you belong to any clubs or organizations such as hinduism groups, unions, fraternal or athletic groups, or school groups?Yes 09/20/2024How often do you attend meetings of the clubs or organizations you belong to?Patient penxiuge33/21/2025re you , , , , never , or living with a partner?Mpcgwye3609/20/2024UDIT-C AnswerDate RecordedQ1: How often do you have [...] hard at all09/20/2024PHQ-2 AnswerDate RecordedPatient Health Questionnaire-2 Ieksq303Finuintah basin medical center [place] of Occupational Health - Occupational Stress QuestionnaireAnswerDate RecordedDo you feel stress - tense, restless, nervous, or anxious, or unable to sleep at night because yourmind is troubled all the time - these days?To some hcvonc8609/20/2024Exercise Vital SignAnswerDate RecordedOn average, how many days [...] were you homeless or living in a custodial (including now)?No09/20/2024Sex and Gender InformationValueDate RecordedSex Assigned at VaiwmYgod43/08/2023 9:05 AM EDTLegal QlhSnic2108/14/2022 7:25 PM EDTGender DsdhbsafBwhq94/08/2023 9:05 AM EDTSexual JhcgjgtjkdoRyhylnhs41/08/2023 9:05 AM EDTdocumented as of this encounter Plan of Treatment Not on file documented as of this encounter Visit Diagnoses Not on filedocumented in this encounter Additional Health Concerns AssessmentNoted TimePHQ-9 Depression Total Score: 9:00 AM EDT documented as of this encounter Care Teams Team MemberRelationshipSpecialtyStart DateEnd Date Jackie Hurtado MD [address] [place] [address] PCP - GeneralFamily Medicine12/26/22 Danielle Hawkins MD [address] [place], [place] [phone] PCP - Medical [place] 06/02/2511 Ana Avilez NP [address] [place], [place] [phone] Nurse PractitionerFamily Medicine02/23/24documented as of this encounter
--- OUTSIDE RECORDS SUMMARY | 2025-03-29 19:38 | XMS_ITS | Clinical Summary ---
Author Organization [facility] Address [address] 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 Operator Name Role Phone Jackie Hurtado MD Primary Care Provider [phone] Allergies No known active allergies Medications MedicationSigDispense QuantityRefillsLast FilledStart DateEnd DateStatus ascorbic acid (Vitamin C) 1,000 mg tablet Take 1 tablet (1,000 mg) by mouth once daily.Active atorvastatin (Lipitor) 20 mg tablet Take 1 tablet (20 mg) by mouth once daily at bedtime.Active cholecalciferol (Vitamin D-3) 25 MCG (1000 UT) capsule Take 1 capsule (25 mcg) by mouth once daily.Active hydroCHLOROthiazide (HYDRODiuril) 25 mg tablet Take 0.5 tablets (12.5 mg) by mouth once daily.Active hydrocortisone (Cortef) 10 mg tablet Take 2 tablets (20 mg) by mouth 2 times a day. 2 tabs in the AM & 1 in the afternoon.Active losartan (Cozaar) 100 mg tablet Take 1 tablet (100 mg) by mouth once daily.Active meloxicam (Mobic) 7.5 mg tablet Take 1 tablet (7.5 mg) by mouth once daily.Active pantoprazole (ProtoNix) 40 mg EC tablet Take 1 tablet (40 mg) by mouth once daily in the morning. Take before meals. Active potassium chloride CR 20 mEq ER tablet Take 0.5 tablets (10 mEq) by mouth once daily.Active sertraline (Zoloft) 25 mg tablet Take 1 tablet (25 mg) by mouth once daily.Active tiZANidine (Zanaflex) 4 mg capsule Take 1 capsule (4 mg) by mouth once daily at bedtime.Active zinc gluconate 50 mg tablet Take 1 tablet (50 mg of elemental zinc) by mouth once daily.Active Active Problems ProblemNoted DateDiagnosed DateAddisons cnhywje4206/26/2023Hyperlipidemia 06/26/20232162Pwfoiwpnviqu46/25/2024 Family History Medical HistoryRelationNameCommentsKidney failureFatherrespitory failureMother RelationNameStatusCommentsFatherMother Social History Tobacco UseTypesPacks/DayYears UsedDateSmoking Tobacco: Never Tobacco Cessation:Counseling Given: Not Answered Alcohol UseStandard Drinks/WeekCommentsYes0 (1 standard drink = 0.6 oz pure alcohol)Sex and Gender InformationValueDate RecordedSex Assigned at BirthNot on fileLegal LowAjpx45/26/2022 5:06 AM ESTGender IdentityNot on fileSexual OrientationNot on file Last Filed Vital Signs Vital SignReadingTime TakenCommentsBlood Ctzegkrw642/8804 8:30 AM EDT Zymmi938409/02/2022 8:30 AM EDTTemperature--Respiratory Rate--Oxygen Saturation-- Inhaled Oxygen Concentration--Mlangx26.1 kg (214 lb)09/02/2022 8:30 AM EDTHeight 180.3 cm (5' 11 )09/02/2022 8:30 AM EDTBody Mass Index29.8504 8:30 AM EDT Plan of Treatment Health MaintenanceDue DateLast DoneCommentsCT Dheoxfwcluoi1959Colonoscopy 1959FIT1959Lipid Panel1959 4491Lbzyngnmloenu1959Thyroglobulin Test1959MMR Vaccines (1 of 1 - Standard series)01/15/1960Diabetes Snkghgmcl19/15/1977Hepatitis C Wertukemd84/15/1977DTaP/Tdap/Td Vaccines (1 - Tdap)PSA Prostate Cancer Nvgbkgoob45/15/2009Zoster Vaccines (1 of 2)2009Pneumococcal Vaccine (2 of 2 - PCV), 04/03/2004Yearly Adult Bhqhydke23Colorectal Cancer Screening 12/27/2023FIT-DNA (Cologuard)Influenza Vaccine (#1) 509/, 02/13/2022, 06/05/2021, Additional history existsCOVID-19 Vaccine (2024- season)2025RSV High Risk: (Elderly (60+) or Population) (1 - 1-dose 75+ series)2034HIB VaccinesAged OutNo longer eligible based on patient's age to complete this topicHPV VaccinesAged OutNo longer eligible based on patient's age to complete this topicHepatitis A VaccinesAged OutNo longer eligible based on patient's age to complete this topic Hepatitis B VaccinesAged OutNo longer eligible based on patient's age to complete this topicIPV VaccinesAged OutNo longer eligible based on patient's age to complete this topicMeningococcal VaccineAged OutNo longer eligible based on patient's age to complete this topicRotavirus VaccinesAged OutNo longer eligible based on patient's age to complete this topic Care Teams Team MemberRelationshipSpecialtyStart DateEnd Date Jackie Hurtado MD [address] [place] [address] PCP - General06/02/99
--- OUTSIDE RECORDS SUMMARY | 2025-03-29 19:38 | XMS_ITS | Clinical Summary ---
Author Organization [facility] Healthcare Address [address] [place] [address] Care Team Providers Care Parlor Chaperone Name Role Phone Jackie Hurtado MD Primary Care Provider [phone] Ana Avliez NP Unavailable [phone] Danielle Hawkins MD Unavailable Allergies No known active allergies Medications MedicationSigDispense QuantityRefillsLast FilledStart DateEnd DateStatus tadalafil (Cialis) 5 MG tablet 4Active fluticasone (Flonase) 50 MCG/ACT nasal spray Indications:Nasal congestionAdminister 1 spray into each nostril Daily Shake gently. Before first use, prime pump. After use, clean tip and replace cap. 48 g 5Active tiZANidine (Zanaflex) 4 MG tablet Indications:CervicalgiaTAKE 1 TABLET BY MOUTH EVERYDAY AT BEDTIME 90 tablet 5Active hydrocortisone (Cortef) 10 MG tablet Indications:Maricopa disease (HCC)Take 1 tablet (10 mg) by mouth in the morning and 1 tablet (10 mg) in the evening and 1 tablet (10 mg) before bedtime. 270 tablet /5Active Additional Information Patient taking differently:10 mg Oral 3 times daily, Morning, Evening, Bedtime, Taking 20mg in am and 10mg in the evening, Reported on 03/15/2025 hydroCHLOROthiazide (HYDRODiuril) 25 MG tablet Indications:Primary hypertensionTAKE 1 TABLET BY MOUTH IN THE MORNING 90 tablet 5Active atorvastatin (Lipitor) 20 MG tablet Indications:Mixed hyperlipidemiaTAKE 1 TABLET BY MOUTH DAILY 90 tablet 5Active albuterol HFA 90 mcg/act inhaler Indications:WheezingInhale 2 puffs every 6 (six) hours if needed for wheezing 18 g 5Active famotidine (Pepcid) 20 MG tablet Indications:Gastroesophageal reflux disease without esophagitisTake 1 tablet (20 mg) by mouth Daily 90 tablet 5Active sertraline (Zoloft) 25 MG tablet Indications:Recurrent major depressive disorder, in partial remissionTake 1 tablet (25 mg) by mouth Daily 90 tablet 5Active pregabalin (Lyrica) 50 MG capsule Take 50 mg by mouth in the morning and 50 mg before bedtime.Active traMADol (Ultram) 50 MG tablet Take 50 mg by mouth every 6 (six) hours if needed for severe painActive apixaban (Eliquis) 5 MG tablet Take 5 mg by mouth in the morning and 5 mg before bedtime.Active Eliquis DVT/PE Starter Pack 5 MG tablet therapy pack skip day 1 then TAKE 2 TABLETS BY MOUTH TWICE DAILY FOR 6 DAYS, then TAKE 1 TABLET BY MOUTH TWICE DAILY JENEREXEQR36/08/2025ActiveHospital, Clinic, or Other Facility Administered MedicationOrdered DoseRouteFrequencyStart DateEnd Date Status betamethasone acetate-betamethasone sodium phosphate (Celestone) injection 3 mg Indications:Primary osteoarthritis of right ankle3 vdAJUldx08/20/ Ended triamcinolone acetonide (Kenalog-40) injection 20 mg Indications:Primary osteoarthritis of right ankle20 ctGROaem48/20/ Ended Active Problems ProblemNoted DateDiagnosed DateChronic kidney disease, stage 3b09/22/2024 Assessment & Plan (03/15/2025 1:13 PM EDT): Follows with nephrology. Assessment & Plan (11/09/2024 11:32 AM EDT): Follows with neprhology. Assessment & Plan (09/22/2024 11:18 PM EDT): Labs pending. Prolapsed internal hemorrhoids, grade 304/norectal pain08/31/2024 External qkyunksavqd81/01/2025 Assessment & Plan (09/21/2024 4:38 PM EDT): To OR per Dr Sheikh. Anal sxhmthqy48/01/2025History of arthroscopy of left knee12/25/2023Migraine 11/28/2023ervicogenic fqnyuklk77/28/2024 Assessment & Plan (02/26/2024 8:59 AM EDT): Followed by neurology Cervical stenosis of spinal canal11/28/2023 Assessment & Plan (02/26/2024 8:59 AM EDT): Followed by neurology Radiculopathy of cervical spine11/28/2023 Assessment & Plan (02/26/2024 8:59 AM EDT): Followed by neurology Cervical xtmmzlcgca81/28/2024 Assessment & Plan (02/26/2024 8:58 AM EDT): Followed by neurology Degenerative disc disease, mtwkiwlz51/28/2024Ventricular tachycardia, unspecified (I47.20)08/22/2023adicular syndrome of lower limbs08/22/2023 Assessment & Plan (02/26/2024 9:00 AM EDT): Followed by neurology Assessment & Plan (08/22/2023 9:50 AM EDT): On Gabapentin, tizanidine, and meloxicam for pain. Followed by neurology Disease of spinal cord, unspecified (G95.9)08/22/2023 Assessment & Plan (08/22/2023 9:50 AM EDT): Followed by neurology Mixed cxcebiujtqmi35/22/2024 Assessment & Plan (02/26/2024 9:03 AM EDT): On a statin Assessment & Plan (08/22/2023 9:52 AM EDT): On a statin Gastroesophageal reflux disease without cuquuwnybkd65/22/2024 Assessment & Plan (02/26/2024 9:01 AM EDT): Mood is stable on current medications. Reviewed importance of healthy diet and exercise, stress management, and social support. Assessment & Plan (08/22/2023 9:52 AM EDT): Continue medications as prescribed. Avoid triggers such as caffeine, ETOH, spicy foods. Avoid supine position 2-3 hours after eating. Elevate HOB. Recurrent major depressive disorder, in partial hksaghypd45/22/2024 Assessment & Plan (11/09/2024 11:31 AM EDT): Controlled on zoloft. History of prostate igiaos6702/21/2023 Assessment & Plan (03/15/2025 12:57 PM EDT): PSA < 0.01 in 12/23. Assessment & Plan (11/09/2024 11:31 AM EDT): PSA < 0.01. Assessment & Plan (08/22/2023 9:51 AM EDT): Followed by urology Stress drxrdqtkavxo97/22/2023 Assessment & Plan (02/26/2024 9:02 AM EDT): Followed by urology Graves' disease in trepnldir78/25/2023 Assessment & Plan (02/26/2024 9:02 AM EDT): Followed by endocrinology Maricopa uwjedzi5712/24/2022 Assessment & Plan (03/15/2025 1:13 PM EDT): Sees Dr Sky. On hydrocortisone. Assessment & Plan (11/09/2024 11:30 AM EDT): Sees Dr Sky. On hydrocortisone. Assessment & Plan (09/22/2024 11:17 PM EDT): Sees Dr Sky. On hydrocortisone. Assessment & Plan (02/26/2024 9:00 AM EDT): Followed by endocrinology Assessment & Plan (08/22/2023 9:51 AM EDT): On cortisone. Followed by endocrinology Corticoadrenal drcckedtozbou69/25/2023HTN (hypertension), xgnctd9712/24/2022 Assessment & Plan (03/15/2025 1:13 PM EDT): BP controlled on the hydrochlorothiazide only. Assessment & Plan (11/09/2024 11:30 AM EDT): BP controlled on the hydrochlorothiazide only. Assessment & Plan (09/22/2024 11:17 PM EDT): BP still good without the losartan. Assessment & Plan (02/26/2024 9:00 AM EDT): Discussed current management plan. Goal BP less then 130/80. Discussed heart healthy diet, increasefruits and vegetables, limit salt intake. Encouraged increase physical exercise, try to be as active as possible at least 150 mins per week. Importance of weight management with a goal BMI less then 27 discussed. Discussed complications of uncontrolled blood pressure. Patient instructed to monitor BP's 1-2 times a week, keep a log, and bring to next visit. Barriers to care and medication compliance discussed. Patient voices understanding of meds. Assessment & Plan (08/22/2023 9:50 AM EDT): Well controlled on current regimen. Discussed current management plan. Goal BP less then 130/80. Discussed heart healthy diet, increase fruits and vegetables, limit salt intake. Encouraged increase physical exercise, try to be as active as possible at least 150 mins per week. Importance of weight management with a goal BMI less then 27 discussed. Discussed complications of uncontrolled blood press ure. Patient instructed to monitor BP's 1-2 times a week, keep a log, and bring to next visit. Barriers to care and medication compliance discussed. Patient voices understanding of meds. PVCs (premature ventricular contractions)12/24/2022Seasonal sgymycloq64/25/2023 Assessment & Plan (02/26/2024 9:03 AM EDT): Stable Kidney vhfnkl4512/24/2022 Assessment & Plan (02/26/2024 9:02 AM EDT): Being worked up by nephrology and urology Resolved Problems ProblemNoted DateDiagnosed DateResolved DateChest pain/ Fafrbgn98/28//rm pain11/27//0902Tjqbxhjrqf60/28/2024 02/26/2024Neck pain11/27/adiculopathy, ikbyngbu42/22/2024 02/26/2024 Assessment & Plan (08/22/2023 9:51 AM EDT): Followed by neurology Prostate fuuuco55/cute gout involving toe of right foot /aresthesia of skin Encounters DateTypeDepartmentCare FzfpPrqdinolqkp34/20/2025 10:00 AM EDTOffice Visit [facility] [address] [place] [phone] Galen Morgan DPM Primary osteoarthritis of right ankle (Primary Dx); Arthralgia of right foot03/21/2025amboo flowsheet [facility] [address] [place] [phone] Galen Morgan DPM 03/21/20259419Osqedk79/17/6523Ivlfwe23/14/2025 11:00 AM EDTOffice Visit [facility] [address] [place] [phone] Jackie Hurtado MD Multiple subsegmental pulmonary emboli without acute cor pulmonale (HCC) (Primary Dx); HTN (hypertension), benign; Maricopa disease (HCC); Chronic kidney disease, stage 3b ([facility]-HCC)03/15/2025[facility] [address] [place] [phone] Jakcie Hurtado MD 03/15/20257289Wrlqoz35/09/2025Patient Outreach [facility] [address] [place] [address] Jackie Wan RN 02/08/2025Refill [facility] [address] [place] [address] Jackie Hurtado MD Gastroesophageal reflux disease without esophagitis (Primary Dx); Recurrent major depressive disorder, in partial bqcoyfuuv29/08/2025Orders Only [facility] [address] [place] [address] Alfa Sky MD 01/30/2025Refill [facility] [address] [place] [phone] Jackie Hurtado MD Fmrnmplr76/11/2025 2:30 PM EDTOffice Visit [facility] [address] [place] [phone] Galen Morgan DPAlex Hallux rigidus of right foot (Primary Dx); Primary osteoarthritis of right ankle; Arthralgia of right foot; Equinus contracture of right ankle01/10/2025[facility] flowsheet [facility] [address] [place] [phone] Galen Morgan DPM 01/10/20254316Jczriq39/09/2025Refill [facility] [address] [place] [phone] Ana Avilez, HYDRAULIC TESTER Mixed ptwkpnjobpjmyv97/07/6272Rxtlpo65/04/0866Niqtbz69/30/2025Refill [facility] [address] [place] [address] Ana Avilez, MEAGAN Primary hypertensionfrom Last 3 Months Immunizations ImmunizationAdministration DatesNext DueInfluenza, High Dose Seasonal, Preservative Free02/23/2024,02/03/2020Influenza, Dtegtadixnj58/07/2020, 04/03/2004Influenza, injectable, MDCK, preservative free, dqemmtknpbzb84/04/2022 Influenza, injectable, quadrivalent, preservative free02/21/2023,02/13/2022 Influenza, seasonal, quwyfahrws38/01/2020Novel lreidnyjv-G2L4-03, preservative-free05/13/2009Pneumococcal Conjugate PCV 4Pneumococcal Polysaccharide TFHN7759,04/03/2004TD (adult), 2 Lf tetanus toxoid, preservative free, csyiadvi37/15/2004 Family History Medical HistoryRelationNameCommentsObesityBrother 1x 2AsthmaBrother 2Ronald and LarryDiabetesBrother 3LarryDiabetesBrother 4Larry MillerObesityBrother 4Larry MillerAsthmaBrother 5Ronald and LarryDiabetesBrother 6LarryHypertensionFather GeraldKidney diseaseFatherGeraldKidney failureFatherGeraldBreast cancerMother BettieCancerMotherBettieEmphysemaMotherBettieHeart failureMotherBettieAsthma Sisterx 1DiabetesSisterx 1ObesitySisterx 1RelationNameStatusCommentsBrother 1x 2 Brother 2Ronald and LarryAliveBrother 3LarryAliveBrother 4Larry MillerAlive Brother 5Ronald and LarryAliveBrother 6LarryAliveFatherGeraldDeceasedMother BettieDeceasedSisterx 1Sonx 2Alive Social History Tobacco UseTypesPacks/DayYears UsedDateSmoking Tobacco: NeverSmokeless Tobacco: Never Tobacco Cessation:Counseling Given: Not Answered Alcohol UseStandard Drinks/WeekCommentsYes2 (1 standard drink = 0.6 oz pure alcohol)caffeine intake: 1 cup mjgrrU4496 Health LiteracyAnswerDate RecordedHow often do you need [...] Twice a week09/20/2024How often do you attend synagogue or christian services?More than 4 times per year09/20/2024Do you belong to any clubs or organizations such as synagogue groups, unions, fraternal or athletic groups, or school groups?Yes 09/20/2024How often do you attend meetings of the clubs or organizations you belong to?Patient egnttrtk80/21/2025re you , , , , never , or living with a partner?Mlrtbzo4709/20/2024UDIT-C AnswerDate RecordedQ1: How often do you have [...] hard at all09/20/2024PHQ-2 AnswerDate RecordedPatient Health Questionnaire-2 Whqhs204Finamerican [facility] [place] of Occupational Health - Occupational Stress QuestionnaireAnswerDate RecordedDo you feel stress - tense, restless, nervous, or anxious, or unable to sleep at night because yourmind is troubled all the time - these days?To some eaqvmg1009/20/2024Exercise Vital SignAnswerDate RecordedOn average, how many days [...] were you homeless or living in a long term (including now)?No09/20/2024Sex and Gender InformationValueDate RecordedSex Assigned at GteqcXkir75/08/2023 9:05 AM EDTLegal XesBhsa4408/14/2022 7:25 PM EDTGender CqtngvxaIkgs46/08/2023 9:05 AM EDTSexual KmqdiumxzyoAopabqzx42/08/2023 9:05 AM EDT Last Filed Vital Signs Vital SignReadingTime TakenCommentsBlood Dxxffevx423/7403/15/2025 11:06 AM EDT Ddoni12594/14/2025 11:06 AM SCQYqdifdeoweb58.3 ??C (97.3 ??F)11/02/2024 1:00 PM EDTRespiratory Jppx9733 9:44 AM EDTOxygen Enlivbykka18%03/15/2025 11:06 AM EDTInhaled Oxygen Concentration--Rpstrc49.4 kg (206 lb)03/21/2025 9:51 AM EDT Wtpxfx508.9 cm (6')03/21/2025 9:51 AM EDTBody Mass Index27.9403/21/2025 9:51 AM EDT Plan of Treatment Health MaintenanceDue DateLast DoneCommentsCT Quahpnqclzys1959Colonoscopy 1959FIT1959FOBT1959 2154Dhybiugwckymv1959Influenza Vaccine (#1)5002/23/2024, 02/21/2023, 02/13/2022, Additional history exists Medicare Annual Wellness (AWV)/03/2025, 02/23/2024, 02/23/2024, Additional history existsColorectal Cancer Iftyteyyf26/04/2027FIT-DNA03/05/2027 03/05/2024, 12/26/2020, 12/26/2020neumococcal Vaccine: 65+ YearsCompleted 02/23/2024, 06/02/2015, 04/03/2004 Procedures Procedure NamePriorityDate/TimeAssociated DiagnosisCommentsLIPID PANELRoutine 02/07/2025 8:31 AM EDTRENAL FUNCTION HWFCLLgzsyzs54/08/2025 8:31 AM EDTVITAMIN D Owcfqgc4602/07/2025 8:31 AM EDTLAB COLOGUARD?? COLON CANCER SCREENRoutine 03/05/2024 9:00 AM EDT Encounter for wellness examination Screening for malignant neoplasm of colon from Last 3 Months or Most Recently Relevant to Health Maintenance Results * VITAMIN D (02/07/2025 8:31 AM EDT) Narrative Authorizing ProviderResult TypeResult StatusSalinas Valley Health [facility] Center Pierre Jose Daniel AgileJ LimitedLAB BLOOD ORDERABLESFinal Result * Renal function panel (02/07/2025 8:31 AM EDT)Specimen (Source)Anatomical Location / LateralityCollection Method / VolumeCollection TimeReceived Time BloodVenous blood specimen / Unknown Narrative Authorizing ProviderResult TypeResult StatusSocialDefenderd AgileLAB BLOOD ORDERABLESFinal Result * Lipid panel (02/07/2025 8:31 AM EDT)Specimen (Source)Anatomical Location / LateralityCollection Method / VolumeCollection TimeReceived TimeBloodVenous blood specimen / Unknown Narrative Authorizing ProviderResult TypeResult StatusSalinas Valley Health Medical Center Pierre Jose Daniel MDLAB BLOOD ORDERABLESFinal Result * Cologuard?? colon cancer screening (03/05/2024 9:00 AM EDT)ComponentValueRef RangeTest MethodAnalysis TimePerformed AtPathologist SignatureNONINV COLON CA DNA+OCC BLD SCRN STL-GGYLwuzlqkbLjljkgel25/09/2024 1:55 PM EDTEXQubulus (CLIA #:[id number])Comment: NEGATIVE TEST RESULT. A negative Cologuard result indicates a low likelihood that a colorectal cancer (CRC) or advanced adenoma (adenomatous polyps with more advanced pre-malignant features) ??is present. The chance that a person with a negative Cologuard test has a colorectal cancer is less than 1in 1500 (negative predictive value >99.9%) or has an advanced adenoma is less than 5.3% (negative predictive value 94.7%). These data are based on a prospective cross-sectional study of 10,000individuals at average risk for colorectal cancer who were screened with both Cologuard and colonoscopy. (Vivian Martinez al, N Engl J Med 2014;370(14):9871-2340) The normal value (reference range) for this assay is negative. COLOGUARD RE-SCREENING RECOMMENDATION: Periodic colorectal cancer screening is an important part ofpreventive healthcare for asymptomatic individuals at average risk for colorectal cancer. ??Following a negative Cologuard result, the [place] [employer] and U.S. Multi-Society Task Force screening guidelines recommend a Cologuard re-screening interval of 3 years. References: [place] [employer] Guideline for Colorectal Cancer Screening: https://www.cancer.or g/cancer/xomyl-kmcbdr-wgrjbq/nteybgkpg-nrlzpjjoy-ptteivi/acs-recommendations.htm alvarez; Shady STERLING, Devante PARDO, Clarke WATERMAN, Colorectal Cancer Screening: Recommendations for Physicians and Patients from the U.S. Multi-Society Task Force on Colorectal Cancer Screening , Am J Gastroenterology 2017; 112:7286-3250. TEST DESCRIPTION: Composite algorithmic analysis of stool DNA-biomarkers with hemoglobin immunoassay. ?? Quantitative values of individual biomarkers are not reportable and are not associated with individual biomarker result reference ranges. Cologuard is intended for colorectal cancer screening ofadults of either sex, 45 years or older, who are at average-risk for colorectal cancer (CRC). Cologuard has been approved for use by the U.S. FDA. The performance of Cologuard was established in a cross sectional study of average-risk adults aged 50-84. Cologuard performance in patients ages 45 to 49 years was estimated by sub-group analysis of near-age groups. Colonoscopies performed for a positive result may find as the most clinically significant lesion: colorectal cancer [4.0%], advanced adenoma (including sessile serrated polyps greater than or equal to 1cm diameter) [20%] or non- advanced adenoma [31%]; or no colorectal neoplasia [45%]. These estimates are derived from a prospective cross-sectional screening study of 10,000 individuals at average risk for colorectal cancer who were screened with both Cologuard and colonoscopy. (Vivian Haynes, N Engl J Med 2014;370(14):9547-8897.) Cologuard may produce a false negative or false positive result (no colorectal cancer or precancerous polyp present at colonoscopy follow up). A negative Cologuard test result does not guarantee the absence of CRC or advanced adenoma (pre-cancer). The current Cologuard screening interval is every 3 years. ([place] [employer] and U.S. Multi-Society Task Force). Cologuard performance data in a 10,000 patient pivotal study using colonoscopy as the reference method can be accessed at the following location: www.ShareTracker.UpCounsel/results. Additional description of the Cologuard test process, warnings and precautions can be found at www.cologuard.com. Specimen (Source)Anatomical Location / LateralityCollection Method / Volume Collection TimeReceived TimeStool specimen (specimen)03/05/2024 9:00 AM EDT 03/06/2024 7:28 AM EDT Narrative Authorizing ProviderResult TypeResult StatusSara Justynholy [facility] NPANDERSON COUNTY H[facility]ITAL MOLECULAR DIAGNOSTICS ORDERABLESFinal ResultPerforming OrganizationAddressCity/State/ZIP CodePhone Number .[employer] (CLIA #:[id number]) [address] [place] [address], [place] [phone] [employer] (CLIA #:[id number]) [address] [place] [address] from Last 3 Months or Most Recently Relevant to Health Maintenance Insurance Care Teams Team MemberRelationshipSpecialtyStart Date Jackie Hurtado MD [address], [place] [phone] PCP - GeneralFamily Medicine12/26/22 Danielle Hawkins MD [address] [place] [address] PCP - Medical [facility]06/02/2511 Ana Avilez NP [address] [place], [place] [phone] Nurse PractitionerFamily Medicine02/23/24
--- OUTSIDE RECORDS SUMMARY | 2025-03-29 19:38 | XMS_ITS | Encounter Summary ---
Author Organization [facility] Address [address] [place] [address] Care Team Providers Care Window Shade Ring Sewer Name Role Phone Jackie Hurtado MD Primary Care Provider [phone] Ana Avilez NP Unavailable Danielle Hawkins MD Unavailable Encounter Details DateTypeDepartmentCare Team (Latest Contact Info)Jqouzpdfwtx11/20/2025amboo flowsheet [facility] [address] [place] [id number] Galen Morgan, DPM [address] [place], [place] [id number] Social History Tobacco UseTypesPacks/DayYears UsedDateSmoking Tobacco: NeverSmokeless Tobacco: NeverAlcohol UseStandard Drinks/WeekCommentsYes2 (1 standard drink = 0.6 oz pure alcohol)caffeine intake: 1 cup [id number] Health LiteracyAnswerDate RecordedHow often do you need [...] Twice a week09/20/2024How often do you attend adventist or anabaptism services?More than 4 times per year09/20/2024Do you belong to any clubs or organizations such as adventist groups, unions, fraternal or athletic groups, or school groups?Yes 09/20/2024How often do you attend meetings of the clubs or organizations you belong to?Patient dzrvsrlo96/21/2025re you , , , , never , or living with a partner?Syimvht0709/20/2024UDIT-C AnswerDate RecordedQ1: How often do you have [...] hard at all09/20/2024PHQ-2 AnswerDate RecordedPatient Health Questionnaire-2 Ffldn233[facility] [place] [facility] - Occupational Stress QuestionnaireAnswerDate RecordedDo you feel stress - tense, restless, nervous, or anxious, or unable to sleep at night because yourmind is troubled all the time - these days?To some kmvrnv8709/20/2024Exercise Vital SignAnswerDate RecordedOn average, how many days [...] steady place to sleep or slept in [facility] (including now)?No02/19/2023Housing Stability Vital SignAnswerDate RecordedIn the last 12 months, was there a time when you were not able to pay the mortgage or rent on time?No09/20/2024In the past 12 months, how many times have you moved where you were living?t any time in the past 12 months, were you homeless or living in a care home (including now)?No09/20/2024Sex and Gender InformationValueDate RecordedSex Assigned at [employer]17/08/2023 9:05 AM EDTLegal YgwLgpd5108/14/2022 7:25 PM EDTGender ScwljtegHlnb66/08/2023 9:05 AM EDTSexual HakpbzbfekuMhfbmhzx26/08/2023 9:05 AM EDTdocumented as of this encounter Plan of Treatment Not on file documented as of this encounter Visit Diagnoses Not on filedocumented in this encounter Additional Health Concerns AssessmentNoted TimePHQ-9 Depression Total Score: 106 9:00 AM EDT documented as of this encounter Care Teams Team MemberRelationshipSpecialtyStart DateEnd Date Jackie Hurtado MD [address] [facility] [place], [place] [id number] PCP - GeneralFamily Medicine12/26/22 Danielle Hawkins MD [address] [facility] [place] [address] PCP - Medical [facility]06/02/2511 Ana Avilez NP [address] [facility] [place], [place] [id number] Nurse PractitionerFamily Medicine02/23/24documented as of this encounter
--- OUTSIDE RECORDS SUMMARY | 2025-03-29 19:39 | XMS_ITS | Clinical Summary ---
Author Organization [facility] Address [address], [address] [place] [address] Care Team Providers Care Freight Handler Name Role Phone Chidi Fabian MD Primary Care Provider [phone] Allergies No known active allergies Medications MedicationSigDispense QuantityRefillsLast FilledStart DateEnd DateStatus hydrochlorothiazide (HYDRODIURIL) 25 MG tablet Take 25 mg by mouth dailyActive potassium chloride (MICRO-K) 10 MEQ extended release capsule Take 10 mEq by mouth 2 times dailyActive losartan (COZAAR) 100 MG tablet Take 100 mg by mouth dailyActive amLODIPine (NORVASC) 5 MG tablet Take 5 mg by mouth dailyActive gabapentin (NEURONTIN) 100 MG capsule Take 100 mg by mouth 3 times daily.Active hydrocortisone 0.5 % cream Apply topically 2 times daily Apply topically 2 times daily.Active Family History Medical HistoryRelationNameCommentsHigh Blood PressureFatherCancerMotherRelation NameStatusCommentsFatherMother Social History Tobacco UseTypesPacks/DayYears UsedDateSmoking Tobacco: NeverSmokeless Tobacco: NeverAlcohol UseStandard Drinks/WeekCommentsYes0 (1 standard drink = 0.6 oz pure alcohol)Sex and Gender InformationValueDate RecordedSex Assigned at BirthNot on fileLegal AenBism7506/05/2017 3:03 PM ESTGender IdentityNot on fileSexual OrientationNot on file Last Filed Vital Signs Vital SignReadingTime TakenCommentsBlood Pressure--Pulse--Ybtxnfatxne13.4 ??C (97.5 ??F)12/24/2019 1:56 PM EDTRespiratory Rate--Oxygen Saturation--Inhaled Oxygen Concentration--Wlaiue48.7 kg (200 lb)12/24/2019 1:56 PM YNSYkblwf503.6 cm (5' 11.5 )12/24/2019 1:56 PM EDTBody Mass Index27.51012/24/2019 1:56 PM EDT Plan of Treatment Not on file Insurance MemberSubscriberPlan / Payer (Effective 2014-Present)Name:Toney Braun Relation to Subscriber:SelfName:BraunToney Payer ID:Not on file Type:Not on file Address: [address] [place] [id number] Care Teams Team MemberRelationshipSpecialtyStart DateEnd Chidi Fabian MD [address] [place] [address] PCP - GeneralFamily Medicine06/05/17
--- OUTSIDE RECORDS SUMMARY | 2025-03-29 19:39 | XMS_ITS | Clinical Summary ---
Author Organization [facility] Address [address] [place] [address] Care Team Providers Care [employer] Exploration Technician Name Role Phone Unavailable Primary Care Provider Unavailabl e Allergies Active AllergyReactionsCriticalityNoted DateCommentsNkda [Other]11/08/2003 Medications MedicationSigDispense QuantityRefillsLast FilledStart DateEnd DateStatus ZOLOFT 25 MG TABLET Take one(1) tablet daily at bedtime.Active HYDROCHLOROTHIAZIDE 12.5 MG CAP Indications:Calculus of kidneyone tablet daily 30 6011/13/2005ctive atorvastatin (LIPITOR) 20 mg tablet Take 20 mg by mouth once daily.06/27/2022ctive sildenafil (VIAGRA) 100 mg tablet Indications:Erectile dysfunction, unspecified erectile dysfunction typeTake one tablet by mouth 1 hour prior to sexual activity. 10 tablet ctive tiZANidine (ZANAFLEX) 4 mg tablet 07/23/2022ctive hydrocortisone (CORTEF) 10 mg tablet Take 2 tablets by mouth every morning AND 1 tablet every afternoon. On 08/05- go back to home dose of20 mg at 8 AM and 10 mg between 2-4 PM (instead of at bedtime) and continue this regimen. 50 tablet 08/05/2022ctive Tadalafil (CIALIS) 5 mg tablet Indications:Erectile dysfunction following radical prostatectomyTake 1 tablet by mouth daily. Do not take in combination with prior Sildenafil Rx. 90 tablet ctive ELIQUIS DVT-PE TREAT 30D START 5 mg (74 tabs) skip day 1 then TAKE 2 TABLETS BY MOUTH TWICE DAILY FOR 6 DAYS, then TAKE 1 TABLET BY MOUTH TWICE DAILY BQMLUHKESF10/08/2025Active traMADol (ULTRAM) 50 mg tablet Take 50 mg by mouth every 6 hours as needed.5Active Active Problems ProblemNoted DateDiagnosed DateProstate xqfxqp8910/11/20231380Lrilpkbydzuf26/23/2023 Nonspecific abnormal results of thyroid function study01/09/2004Thyrotoxicosis without mention of goiter or other cause, without mention of thyrotoxic crisis or storm12/09/2003Addison's wegrnpl6712/06/2003 Assessment & Plan (07/25/2022 5:03 PM EST): Stable on cortef. 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 xpvmkn6411/08/2003Other malaise and skkixai0611/08/2003 Encounters DateTypeDepartmentCare UtphFdbrfxhzayi43/28/2025Telephone Kidney Medicine [id number] [place] [address] Candace Gutiérrez APRN.BOARD WRITER Request for Call03/15/2025Results Follow-Up Kidney Medicine [address] [place] [address] Candace Gutiérrez APRN.BOARD WRITER 03/14/2025 3:30 PM EDTOffice Visit Kidney Medicine [address] [place] [address] Candace Gutiérrez APRN.BOARD WRITER Stage 3b chronic kidney disease (HCC) (Primary Dx); Kidney stones; Hypertensive nephropathy; Anemia of chronic renal failure, stage 3b (HCC); Secondary renal hyperparathyroidism (HCC)03/10/20254539Ttnwgq34/08/2025 10:30 AM EDT Office Visit Kidney Medicine [address] [place] [address] Candace Gutiérrez APRN.BOARD WRITER Hypertensive nephropathy (Primary Dx); Stage 3b chronic kidney disease (HCC); Kidney stones; Anemia of chronic renal failure, stage 3b (HCC); Secondary renal hyperparathyroidism (HCC)02/04/2025 Patient [facility] HB-[address] [place] [address] Lizabeth Ramirez RPh At your next appointment, choose [facility].02/04/2025 Patient [facility] HB-[address] [place] [address] Lizabeth Ramirez RPh At your next appointment, choose [facility].01/31/2025Travelfrom Last 3 Months Immunizations ImmunizationAdministration DatesNext DueTD Adult04/16/2004influenza vaccine, unspecified haxldktaphe49/02/2004pneumococcal polysaccharide (PPV23) vaccine, 23 valent (PNEUMOVAX 23)04/03/2004 Family History Medical HistoryRelationCommentsAnesthesia ProblemsNo Family History Social History Tobacco UseTypesPacks/DayYears UsedDateSmoking Tobacco: NeverSmokeless Tobacco: Never Tobacco Cessation:Counseling Given: Not Answered Alcohol UseStandard Drinks/WeekCommentsYes3.9 (1 standard drink = 0.6 oz pure alcohol)socially in moderate amts.Area Deprivation IndexAnswerDate Recorded National Score (1-100), lower number is lower zpvr186508/02/2024State Score (1- 10), lower number is lower tjnc22508/02/2024Data from: https://www.neighborhoodatlas.medicine.[facility].edu/. Last address used for [address] [place] [address]/02/2024Sex and Gender InformationValueDate RecordedSex Assigned at FtnczSheu80/26/2023 7:24 PM EDTLegal RcdZiqt41/02/2012 10:03 AM ESTGender DtnvjkdzFifa97/26/2023 7:24 PM EDTSexual OrientationNot on fileOccupationIndustryJob Start DateJob End DateUPS DriverNot on fileNot on file Not on file Last Filed Vital Signs Vital SignReadingTime TakenCommentsBlood Bhyvkttd014/8310 3:27 PM EDT Lpumx1820 3:27 PM NIILfimnjqekmi98.6 ??C (97.8 ??F)08/01/2022 11:50 AM ESTRespiratory Mqpi030008/01/2022 11:50 AM ESTOxygen Hpfkurjhuz43%08/01/2022 11:50 AM ESTInhaled Oxygen Concentration--Jsltrg63.6 kg (208 lb 8.9 oz)03/14/2025 3:27 PM COLSokzrz232.9 cm (6')03/14/2025 3:27 PM EDTBody Mass Index28.29 03/14/2025 3:27 PM EDT Plan of Treatment DateTypeDepartmentCare Team (Latest Contact Info)Ovxgylctuma66/16/2026 10:00 AM EDTOffice Visit Kidney Medicine [address] [place], [place] [phone] ButtolCandace aguilar, MOLD MAKER.BOARD WRITER [address] [facility] [place] [address] Return in about 6 months (around 08/07/2025).Health MaintenanceDue DateLast Done CommentsAnnual PCP Team Chronic Disease Visit1977Anxiety Screening 1977Depression Zojaznnmw63/15/1977CT Mpqtitutkrlp75/15/2004Colonoscopy 01/15/2004Fecal Occult Blood01/15/20043543Zludqheuatywj52/15/2004DTaP,Tdap,Td Vaccine (1 - Tdap), 04/16/2004Shingrix Vaccine (1 of 2) 2009Cologuard (FIT-DNA)olorectal Cancer Screening 12/27/2023dvance Directive Dezzjqucji81/01/2025Medicare Advantage Annual Wellness Visit5Covid-19 Vaccine ( season)2025 06/05/2021, 09/05/2020, 08/16/2020Influenza Vaccine (#1)/, 02/21/2023, 02/13/2022, Additional history existsHemoglobin/Ghqvarfrkn62/13/2026 03/14/2025, 09/13/2024, 08/02/2024, Additional history existsSerum Creatinine 61, 02/04/2025, 09/13/2024, Additional history existsDiabetes Fvmfbnqyh90, 09/16/2022, 08/01/2022, Additional history exists Prostate Cancer Screening Qruzgfbnrj95/17/37129812/17/2023, 08/15/2023, 05/19/2023, Additional history existsLipid Iddmnwnxn65, 02/21/2023, 1RSV Vaccine (1 - 1-dose 75+ series)2034Hepatitis C XwlwrnpqwIwvpwbxap96/08/2004Pneumococcal Vaccine: 50+Mfjlhjbpy06/23/2024, 06/02/2015, 04/03/2004 Procedures Procedure NamePriorityDate/TimeAssociated DiagnosisCommentsPROTEIN CREATININE DTRIVEfvzyol10/13/2025 4:46 PM EDT Stage 3b chronic kidney disease (HCC) Kidney stones Hypertensive nephropathy Anemia of chronic renal failure, stage 3b (HCC) Secondary renal hyperparathyroidism (HCC) ALBUMIN/CREATININE RATIO, JRWDDOujyiwk58/13/2025 4:46 PM EDT Stage 3b chronic kidney disease (HCC) Kidney stones Hypertensive nephropathy Anemia of chronic renal failure, stage 3b (HCC) Secondary renal hyperparathyroidism (HCC) RENAL FUNCTION KMFVULxhajhv57/13/2025 4:13 PM EDT Stage 3b chronic kidney disease (HCC) Kidney stones Hypertensive nephropathy Anemia of chronic renal failure, stage 3b (HCC) Secondary renal hyperparathyroidism (HCC) MAGNESIUM ORYGksbybo20/13/2025 4:13 PM EDT Stage 3b chronic kidney disease (HCC) Kidney stones Hypertensive nephropathy Anemia of chronic renal failure, stage 3b (HCC) Secondary renal hyperparathyroidism (HCC) VITAMIN D 25 QSRLZJOIhqfmsk68/13/2025 4:13 PM EDT Stage 3b chronic kidney disease (HCC) Kidney stones Hypertensive nephropathy Anemia of chronic renal failure, stage 3b (HCC) Secondary renal hyperparathyroidism (HCC) PTH INTACT MSRLfdyzap95/13/2025 4:13 PM EDT Stage 3b chronic kidney disease (HCC) Kidney stones Hypertensive nephropathy Anemia of chronic renal failure, stage 3b (HCC) Secondary renal hyperparathyroidism (HCC) CBC + YIGVHxkkufg24/13/2025 4:13 PM EDT Stage 3b chronic kidney disease (HCC) Kidney stones Hypertensive nephropathy Anemia of chronic renal failure, stage 3b (HCC) Secondary renal hyperparathyroidism (HCC) BASIC METABOLIC KHTKVGluargd27/02/2023 1:23 AM EST HEP REMOTE PANEL RWVaizowt41/08/2004 1:37 PM EDT Endocrine/Nerv Dk Nos Other Malaise And Fatigue from Last 3 Months or Most Recently Relevant to Health Maintenance Results * PROTEIN / CREATININE RATIO (03/14/2025 4:46 PM EDT)ComponentValueRef RangeTest MethodAnalysis TimePerformed AtPathologist SignatureProtein, Urine Dpqqgq07 - 20 mg/dL03/15/2025 4:56 PM EDTCLEVEL[facility]INIC MAIN LABCreatinine, Ur Random (UCRR)207.920.0 - 300.0 mg/dL03/15/2025 4:56 PM EDTCLEVELAND CLINIC MAIN LAB Protein/Creat Ratio0.04<0.15 mg/mg03/15/2025 4:56 PM EDTCPROTESTANT DEAC[facility]ITALAND [facility] MAIN LABComment: Adult Proteinuria Categories: <0.15 mg/mg is considered normal to mildly increased 0.15 - 0.50 mg/mg is considered moderately increased >0.50 mg/mg is considered severely increased KDIGO. (2013). KDIGO 2012 Clinical Practice Guideline for the Evaluation and Management of Chronic Kidney Disease. Official Journal of the International Society of Nephrology, 3(1), 1-150. Specimen (Source)Anatomical Location / LateralityCollection Method / Volume Collection TimeReceived TimeUrineURINE SPECIMEN / UnknownNon Blood / Unknown 03/14/2025 4:46 PM EDT1 4:46 PM EDT Narrative Authorizing ProviderResult TypeResult StatusJill Buttolph MOLD MAKER.CNPLABORATORY Final ResultPerforming OrganizationAddressCity/State/ZIP CodePhone Number [facility] [address] * ALBUMIN/CREATININE RATIO, URINE (03/14/2025 4:46 PM EDT)ComponentValueRef RangeTest MethodAnalysis TimePerformed AtPathologist SignatureCreatinine, Ur Random (UCRR)207.920.0 - 300.0 mg/dL03/15/2025 4:56 PM EDTCLEVELAND CLINIC MAIN LABAlbumin, Urine Random<12.0mg/L1 4:56 PM EDTCLEVELAND CLINIC MAIN LABAlbumin/Creat Ratio<6<30 mg/g1 4:56 PM EDTCLEVELAND CLINIC MAIN LABComment: Adult Male and Female Nephrotic Criteria: <30 mg/g is considered normal to mildly increased 30-300 mg/g is considered moderately increased >300 mg/g is considered severely increased KDIGO. (2013). KDIGO 2012 Clinical Practice Guideline for the Evaluation and Management of Chronic Kidney Disease. Official Journal of the International Society of Nephrology, 3(1), 1-150. Specimen (Source)Anatomical Location / LateralityCollection Method / Volume Collection TimeReceived TimeUrineURINE SPECIMEN / UnknownNon Blood / Unknown 03/14/2025 4:46 PM EDT1 4:46 PM EDT Narrative Authorizing ProviderResult TypeResult StatusJill Buttolph MOLD MAKER.CNPLABORATORY Final ResultPerforming OrganizationAddressCity/State/ZIP CodePhone Number [facility] [address] [place] [address], [place] * MAGNESIUM (03/14/2025 4:13 PM EDT)ComponentValueRef RangeTest MethodAnalysis TimePerformed AtPathologist SignatureMagnesium1.91.7 - 2.3 mg/dL03/14/2025 7:05 PM [facility] LABORATORYSpecimen (Source)Anatomical Location / LateralityCollection Method / VolumeCollection TimeReceived TimeBloodBLOOD SPECIMEN / UnknownVenipuncture / Igmwztx3603/14/2025 4:13 PM EDT1 4:14 PM EDT Narrative Authorizing ProviderResult TypeResult StatusJill Buttolph MOLD MAKER.CNPLABORATORY Final ResultPerforming OrganizationAddressCity/State/ZIP CodePhone Number [facility] [address] [facility] [place] [address], [place] * VITAMIN D 25 HYDROXY (03/14/2025 4:13 PM EDT)ComponentValueRef RangeTest MethodAnalysis TimePerformed AtPathologist SignatureVitamin D 25 Pflfgog74.5 31.0 - 80.0 ng/mL03/15/2025 11:32 AM EDTCKETTERING HEALTH DAYTON MAIN LABComment: Classification of 25 [place] Vitamin D status: Deficiency/Insufficiency: < or = 30 ng/ml. Sufficiency/Optimal Levels: 31-80 ng/mL Toxicity: > 100 ng/mL. Test performed by chemiluminescent immunoassay. Specimen (Source)Anatomical Location / LateralityCollection Method / Volume Collection TimeReceived TimeBloodBLOOD SPECIMEN / UnknownVenipuncture / Unknown 03/14/2025 4:13 PM EDT1 4:14 PM EDT Narrative [facility] - 03/15/2025 11:32 AM EDT The reference range interval was based on an analysis of samples from healthy adults and may not pertain to children from 0-18 years old. Authorizing ProviderResult TypeResult StatusJill Brock TORRES.CNPLABORATORY Final ResultPerforming OrganizationAddressCity/State/ZIP CodePhone Number [facility] [address] * (ABNORMAL) RENAL FUNCTION PANEL (03/14/2025 4:13 PM EDT)ComponentValueRef RangeTest MethodAnalysis TimePerformed AtPathologist SignatureAlbumin4.53.9 - 4.9 g/dL03/14/2025 7:05 PM [facility] LABORATORYCalcium, Total9.68.5 - 10.2 mg/dL03/14/2025 7:05 PM [facility] LABORATORYPhosphorus3.72.7 - 4.8 mg/dL03/14/2025 7:05 PM [facility] WBKMCTYHUZXmlshzn978(H)74 - 99 mg/dL 03/14/2025 7:05 PM [facility] LABORATORYComment: The [place] Diabetes Association (ADA) provides guidance for cutoff values for fasting glucose andrandom glucose. The ADA defines fasting as no caloric intake for at least 8 hours. Fasting plasma glucose results between 100 to 125 mg/dL indicate increased risk for diabetes (prediabetes). Fasting plasma glucose results greater than or equal to 126 mg/dL meet the criteria for diagnosis of diabetes. In the absence of unequivocal hyperglycemia, results should be confirmed by repeat testing. In a patient with classic symptoms of hyperglycemia or hyperglycemic crisis, random plasma glucose results greater than or equal to 200 mg/dL meet the criteria for diagnosis of diabetes. Reference: Standards of Medical Care in Diabetes 2016, [place] Diabetes Association. Diabetes Care. 2016.39(Suppl 1). BUN27(H)9 - 24 mg/dL03/14/2025 7:05 PM [facility] LABORATORYCreatinine1.50 (H)0.73 - 1.22 mg/dL03/14/2025 7:05 PM [facility] XKTBPRVWERPpoxgw398461 - 144 mmol/L1 7:05 PM [facility] LABORATORYPotassium5.03.7 - 5.1 mmol/L1 7:05 PM [facility] JCMMKTUFDCRaaplxhb79524 - 107 mmol/L 03/14/2025 7:05 PM [facility] PCZFBEYHJPGS65710 - 30 mmol/L1 7:05 PM [facility] LABORATORYAnion Jcd719 - 15 mmol/L1 7:05 PM EDT [facility] LABORATORYEstimated Glomerular Filtration Rate51(L)>=60 mL/min/1.73m 03/14/2025 7:05 PM [facility] LABORATORYComment:Estimated Glomerular Filtration Rate (eGFR) is calculated using the 2020 CKD-EPI creatinine equation. This equation utilizes serum creatinine, sex, and age as parameters. The creatinine assay has traceable calibration to isotope dilution-mass spectrometry. Refer to KDIGO guidelines for clinical interpretation. In patients with unstable renal function, e.g. those with acute kidney injury, the eGFRmay not accurately reflect actual GFR.Specimen (Source)Anatomical Location / LateralityCollection Method / VolumeCollection TimeReceived TimeBloodBLOOD SPECIMEN / UnknownVenipuncture / Kudctgq8003/14/2025 4:13 PM EDT1 4:14 PM EDT Narrative Authorizing ProviderResult TypeResult StatusJill Buttolph MOLD MAKER.CNPLABORATORY Final ResultPerforming OrganizationAddressCity/State/ZIP CodePhone Number [facility] [address] [facility] [place] [address], [place] * PTH INTACT (03/14/2025 4:13 PM EDT)ComponentValueRef RangeTest MethodAnalysis TimePerformed AtPathologist SignaturePTH, Eonlgs5286 - 65 pg/mL03/15/2025 6:04 AM EDTCOHIOHEALTH [facility] LABSpecimen (Source)Anatomical Location / LateralityCollection Method / VolumeCollection TimeReceived TimeBloodBLOOD SPECIMEN / UnknownVenipuncture / Qcbmexs8503/14/2025 4:13 PM EDT1 4:14 PM EDT Narrative Authorizing ProviderResult TypeResult StatusJill Buttolph MOLD MAKER.CNPLABORATORY Final ResultPerforming OrganizationAddressCity/State/ZIP CodePhone Number [facility] [address] [facility] [address] [place] [phone], * (ABNORMAL) COMPLETE BLOOD COUNT AND DIFFERENTIAL (03/14/2025 4:13 PM EDT) ComponentValueRef RangeTest MethodAnalysis TimePerformed AtPathologist SignatureWBC7.483.70 - 11.00 k/uL03/14/2025 6:23 PM [facility] LABORATORYRBC4.544.20 - 6.00 m/uL03/14/2025 6:23 PM [facility] JHATMKMHKFEwsrbpcuzj48.513.0 - 17.0 g/dL03/14/2025 6:23 PM [facility] NBXVHUIVSMWcvabughwv19.739.0 - 51.0 %03/14/2025 6:23 PM [facility] YFKATVJONMWGG85.680.0 - 100.0 fL03/14/2025 6:23 PM [facility] MCH29.726.0 - 34.0 pg03/14/2025 6:23 PM [facility] OBZRSXYCTAEOKG82.2 30.5 - 36.0 g/dL03/14/2025 6:23 PM [facility] LABORATORYRDW-CV12.211.5 - 15.0 %03/14/2025 6:23 PM [facility] LABORATORYPlatelet Dobcp538(H)150 - 400 k/uL03/14/2025 6:23 PM [facility] LABORATORYMPV9.09.0 - 12.7 fL 03/14/2025 6:23 PM [facility] LABORATORYNeutrophils %75.0%03/14/2025 6:23 PM [facility] LABORATORYAbs Neut5.611.45 - 7.50 k/uL03/14/2025 6:23 PM [facility] LABORATORYLymphocytes %12.8%03/14/2025 6:23 PM [facility] LABORATORYAbs Lymph0.96(L)1.00 - 4.00 k/uL03/14/2025 6:23 PM [facility] LABORATORYMonocytes %8.6%03/14/2025 6:23 PM [facility] LABORATORYAbs Mono0.64<0.87 k/uL03/14/2025 6:23 PM [facility] Eosinophils %2.1%03/14/2025 6:23 PM [facility] LABORATORYAbs Eosin0.16 <0.46 k/uL03/14/2025 6:23 PM [facility] LABORATORYBasophils %0.7% 03/14/2025 6:23 PM [facility] LABORATORYAbs Baso0.05<0.11 k/uL03/14/2025 6:23 PM [facility] LABORATORYImmature Granulocytes %0.8%03/14/2025 6:23 PM [facility] LABORATORYAbs Immature Gran0.06<0.10 k/uL03/14/2025 6:23 PM [facility] LABORATORYNRBC0.0/100 WBC03/14/2025 6:23 PM [facility] LABORATORYAbsolute nRBC<0.01<0.01 k/uL03/14/2025 6:23 PM [facility] LABORATORYDiff EtmxDbql24/13/2025 6:23 PM [facility] Specimen (Source)Anatomical Location / LateralityCollection Method / Volume Collection TimeReceived TimeBloodBLOOD SPECIMEN / UnknownVenipuncture / Lzwlubp1103/14/2025 4:13 PM EDT1 4:14 PM EDT Narrative Authorizing ProviderResult TypeResult StatusJill Buttolph MOLD MAKER.CNPLABORATORY Final ResultPerforming OrganizationAddressCity/State/ZIP CodePhone Number [facility] [address] [facility] [place] [address], [place] * (ABNORMAL) BASIC METABOLIC PNL (08/01/2022 1:23 AM EST)ComponentValueRef Range Test MethodAnalysis TimePerformed AtPathologist IqazqgaojPlfndad292(H)74 - 99 mg/dL08/01/2022 2:53 AM [facility] LABComment: The [place] Diabetes Association (ADA) provides guidance for cutoff values for fasting glucose andrandom glucose. The ADA defines fasting as no caloric intake for at least 8 hours. Fasting plasma glucose results between 100 to 125 mg/dL indicate increased risk for diabetes (prediabetes). Fasting plasma glucose results greater than or equal to 126 mg/dL meet the criteria for diagnosis of diabetes. In the absence of unequivocal hyperglycemia, results should be confirmed by repeat testing. In a patient with classic symptoms of hyperglycemia or hyperglycemic crisis, random plasma glucose results greater than or equal to 200 mg/dL meet the criteria for diagnosis of diabetes. Reference: Standards of Medical Care in Diabetes 2016, [place] Diabetes Association. Diabetes Care. 2016.39(Suppl 1). ART732 - 24 mg/dL08/01/2022 2:53 AM [facility] Creatinine1.39(H)0.73 - 1.22 mg/dL08/01/2022 2:53 AM [facility] YDQWkidsq257480 - 144 mmol/L08/01/2022 2:53 AM [facility] LABPotassium4.23.7 - 5.1 mmol/L08/01/2022 2:53 AM [facility] SOBCdmghvdn76024 - 105 mmol/L08/01/2022 2:53 AM [facility] ODZDY04462 - 30 mmol/L08/01/2022 2:53 AM [facility] LABAnion Qgb280 - 18 mmol/L08/01/2022 2:53 AM [facility] LABCalcium, Total8.98.5 - 10.2 mg/dL08/01/2022 2:53 AM [facility] LABEstimated Glomerular Filtration Rate57(L)>=60 mL/min/1.73m 08/01/2022 2:53 AM [facility] LABComment:Estimated Glomerular Filtration Rate (eGFR) is calculated using the 2020 CKD-EPI creatinine equation. This equation utilizes serum creatinine, sex, and age as parameters. The creatinine assay has traceable calibration to isotope dilution- mass spectrometry. Refer to KDIGO guidelines for clinical interpretation. In patients with unstable renal function, e.g. those with acute kidney injury, the eGFRmay not accurately reflect actual GFR.Specimen (Source)Anatomical Location / LateralityCollection Method / VolumeCollection TimeReceived TimeBloodBLOOD SPECIMEN / UnknownVenipuncture / Tnzwvmi0308/01/2022 1:23 AM EST08/01/2022 1:45 AM EST Narrative Authorizing ProviderResult TypeResult StatusDominic Haider MDLABORATORYFinal ResultPerforming OrganizationAddressCity/State/ZIP CodePhone Number [facility] [address] [place] [address], * HEP REMOTE PANEL BL (11/08/2003 1:37 PM EDT)ComponentValueRef RangeTest Method Analysis TimePerformed AtPathologist SignatureHep B Core Ab, TotalNegativeNEG [facility] LABHep C Antibody IANegativeNEGBETHESDA NORTH HOSPITAL LABHBsAg NegativeNEGBETHESDA NORTH HOSPITAL LABHep B Surface Ab, QualNegativeNEGBETHESDA NORTH HOSPITAL LABComment: ? A negative Hepatitis B Surface Antibody is indicative of: 1)no prior exposure to HBV, 2)lack of antibody response to an acute or chronic HBV infection, 3)lack of antibody response to HBV vaccination, or, 4)loss of immunity that followed either vaccination or infection. Interpretation (Hep Remote Pnl)These results are negative for previous exposure to the hepatitis B and [facility] LABComment:viruses.Specimen (Source) Anatomical Location / LateralityCollection Method / VolumeCollection Time Received TimeBlood specimen (specimen)BLOOD SPECIMEN / Fhhdvwx1511/08/2003 1:37 PM EDT Narrative Authorizing ProviderResult TypeResult StatusJarrod Jordan (HistJenelle Orellana MDLABORATORY Final ResultPerforming OrganizationAddressCity/State/ZIP CodePhone Number [facility] [address] [place] [address] from Last 3 Months or Most Recently Relevant to Health Maintenance Insurance [address] [place] [address] * Guarantor: Toney Braun AAccount TypeRelation to PatientDate of BirthPhone Billing AddressSelf FebCdrh08 [address] [place] [address] [address] [place] [address]
--- OUTSIDE RECORDS SUMMARY | 2025-03-29 19:39 | XMS_ITS | Encounter Summary ---
Author Organization [facility] Address [address] [place] [address] Care Team Providers Care Mercury Purifier Name Role Phone Unavailable Primary Care Provider Unavailabl e Source Comments In the event this information is protected by the Federal Confidentiality of Alcohol and Drug AbusePatient Records regulations: The Federal rules restrict any use of the information to criminally investigate or prosecute any alcohol or drug abuse patient.[facility] Encounter Details DateTypeDepartmentCare Team (Latest Contact Info)Bvdkskylftu34/14/2025Results Follow-Up Kidney Medicine [address] [place] [address] Candace Gutiérrez APRN.ANALYTICS DIRECTOR [address] [facility] [place] [address] Social History Tobacco UseTypesPacks/DayYears UsedDateSmoking Tobacco: NeverSmokeless Tobacco: NeverAlcohol UseStandard Drinks/WeekCommentsYes3.9 (1 standard drink = 0.6 oz pure alcohol)socially in moderate amts.Area Deprivation IndexAnswerDate Recorded National Score (1-100), lower number is lower iuzy9298State Score (1- 10), lower number is lower rmkg389Data from: https://www.neighborhoodatlas.medicine.[facility].edu/. Last address used for [address] [place] [address]/02/2024Sex and Gender InformationValueDate RecordedSex Assigned at SauvtOhzo07/26/2023 7:24 PM EDTLegal BbmDsyq02/02/2012 10:03 AM ESTGender WoeiwsihNmib24/26/2023 7:24 PM EDTSexual OrientationNot on fileOccupationIndustryJob Start DateJob End DateUPS DriverNot on fileNot on file Not on filedocumented as of this encounter Plan of Treatment DateTypeDepartmentCare Team (Latest Contact Info)Cnebfzmkgdr82/16/2026 10:00 AM EDTOffice Visit Kidney Medicine [address] [place], [place] [id number] Candace Gutiérrez, MELISSA.ANALYTICS DIRECTOR [address] [facility] [place] [address] Return in about 6 months (around 08/07/2025).documented as of this encounter Visit Diagnoses Not on filedocumented in this encounter
--- OUTSIDE RECORDS SUMMARY | 2025-03-29 19:39 | XMS_ITS | Patient Health Record ---
Author Organization [facility] [place] Address [address] [place] [address] Care Team Providers Care Beer Coil Cleaner Name Role Phone Kajal Rodgers Unavailable [phone] JEROD, KAJAL Unavailable [phone] Results Component Value Reference Range Notes CBC AUTO DIFF (Not yet revie wed by provider) Interpretation: Performing Lab: Notes/Report: [facility] , White Blood Count 9.0 4.0-11.0 10 3/uL Red Blood Count4.474.70-6.10 10 6/aZEwtpnrpowt82.414.0-18.0 g/bMVbudhlajpi31.1 42.0-54.0 %Mean Corpuscular Gledub66.780.0-94.0 fLMean Corpuscular Hemoglobin 30.025.9-34.0 pgMean Corpuscular HGB Conc33.429.9-35.2 g/dLRed Cell Distribution Width12.411.0-15.0 %Platelet Xxyzb665027-563 10 3/uLMean Platelet Volume9.69.5- 13.5 fLNeutrophils Percent Auto79.243.0-75.0 %Lymphocytes Percent Auto10.420.5- 60.0 %Monocytes Percent Auto8.81.7-12.0 %Eosinophils Percent Auto0.40.9-7.0 % Basophils Percent Auto0.60.2-2.0 %Immature Granulocytes Pct Auto0.60.0-0.5 % Neutrophils Absolute Auto7.21.4-6.5 10 3/uLLymphocytes Absolute Auto0.91.2-3.8 10 3/uLMonocytes Absolute Auto0.80.3-0.8 10 3/uLEosinophils Absolute Auto0.00.0- 0.7 10 3/uLBasophils Absolute Auto0.10.0-0.1 10 3/uLImmature Granulocytes Abs Auto0.050.00-0.03 10 3/uLPerforming Lab:see note - [facility] LB FERRITIN (Not yet reviewed by provider) Interpretation: Performing Lab: Notes/Report: [facility] ,Egwetrjn32.026.0-388.0 ng/mLPerforming Lab:see noteChildren[facility] LBIRON AND TIBC (Not yet reviewed by provider) Interpretation: Performing Lab: Notes/Report: [facility] ,Pjwy690.065.0-175.0 ug/dLTotal Iron Binding Quvmnkaj155.0250.0-450.0 ug/dL Percent Iron Ojoikoxwbj95.7Performing Lab:see [facility]Children[facility] LB LDH (Not yet reviewed by provider) Interpretation: Performing Lab: Notes/Report: [facility] ,Lactate Zgiszjjidwpab02875-030 U/LPerforming Lab:see [facility] LBPROF CHEM 8 (BAS METB) (Not yet reviewed by provider) Interpretation: Performing Lab: Notes/Report: [facility] ,Jmdrdq102292-599 mmol/LPotassium5.03.5-5.1 mmol/KEcychnlm37286-292 mmol/LCarbon Digmfti88.721.0-32.0 mmol/LAnion Gap14.0Nqdpded79337-376 mg/dLBlood Urea Agljmqmk90.07.0-18.0 mg/dLCreatinine2.190.70-1.30 mg/dLEstimated GFR ( Xswsknw11>=60 mL/min/1.73m 2Estimated GFR (Non- Ame30>=60 mL/min/1.73m 2 BUN Creatinine Ratio15.4Jutlrlq0.48.5-10.1 mg/dLPerforming Lab:see noteChildren[facility] LBReticulocyte Pct Auto (Not yet reviewed by provider) Interpretation: Performing Lab: Notes/Report: [facility] ,Reticulocyte Pct Auto1.360.60-3.10 %Performing Lab:see [facility] LB Reason For Referral No Information Encounters Encounter Location Date Provider Diagnosis [facility] Oncology [address] [place] [address] 03/29/2025 KAJAL RODGERS Plan Of Treatment Pending Test Test Name Order Date CBC AUTO DIFF 03/29/2025 FERRITIN 03/29/2025 IRON AND TIBC 03/29/2025 LDH 03/29/2025 PROF CHEM 8 (BAS METB) 03/29/2025 Reticulocyte Pct Auto 03/29/2025 Next Appt Details Provider Name:Kajal Rodgers , 04/26/2025 03:45:00 PM, [address] [place], [address], Insurance Providers Payer Name Payer Address Payer Phone Subscriber Number Group Number Insured Name Patient Relationship to Insured Coverage Start Date Coverage End Date MMO ADVANTAGE CHOICE MEDICARE HMO [address] [place] [address] [id number] Shan Braun Self - patient is the insured
--- OUTSIDE RECORDS SUMMARY | 2025-03-29 19:39 | XMS_ITS | Encounter Summary ---
Author Organization [facility] Address [address] [place] [address] Care Team Providers Care Fur Liner Name Role Phone Unavailable Primary Care Provider Unavailabl e Source Comments In the event this information is protected by the Federal Confidentiality of Alcohol and Drug AbusePatient Records regulations: The Federal rules restrict any use of the information to criminally investigate or prosecute any alcohol or drug abuse patient.[facility] Reason for Visit * ReasonCommentsRequest for Call Encounter Details DateTypeDepartmentCare Team (Latest Contact Info)Lesmmbmnkrq68/28/2025Telephone Kidney Medicine [address] [place] [address] Candace Gutiérrez APRN.FOOD BEVERAGE SERVER [address] [facility] [place] [address] Request for Call Social History Tobacco UseTypesPacks/DayYears UsedDateSmoking Tobacco: NeverSmokeless Tobacco: NeverAlcohol UseStandard Drinks/WeekCommentsYes3.9 (1 standard drink = 0.6 oz pure alcohol)socially in moderate amts.Area Deprivation IndexAnswerDate Recorded National Score (1-100), lower number is lower wcnl203908/02/2024State Score (1- 10), lower number is lower awgc688Data from: https://www.neighborhoodatlas.medicine.[facility].edu/. Last address used for [address] [address]/02/2024Sex and Gender InformationValueDate RecordedSex Assigned at KbtkrSmsh81/26/2023 7:24 PM EDTLegal FxeOgro43/02/2012 10:03 AM ESTGender XoymohaiPhso97/26/2023 7:24 PM EDTSexual OrientationNot on fileOccupationIndustryJob Start DateJob End DateUPS DriverNot on fileNot on file Not on filedocumented as of this encounter Miscellaneous Notes * Telephone Encounter - Miguelina Kendrick RN - 03/29/2025 4:53 PM EDT Lorretta calling from Dr Rodgers's office in [place], [place]. Medical Oncologist. Dr Rodgers would like to speak with Candace Gutiérrez APRN.FOOD BEVERAGE SERVER directly 's cell phone is [phone] documented in this encounter Plan of Treatment DateTypeDepartmentCare Team (Latest Contact Info)Tixlhdsowrg25/16/2026 10:00 AM EDTOffice Visit Kidney Medicine [address] [place] [address] Candace Gutiérrez APRN.FOOD BEVERAGE SERVER [address] [place] [address] Return in about 6 months (around 08/07/2025).documented as of this encounter Visit Diagnoses Not on filedocumented in this encounter
--- OUTSIDE RECORDS SUMMARY | 2025-03-29 19:39 | XMS_ITS | Clinical Summary ---
Author Organization [facility] Address [id number] [place] [address] Care Team Providers Care Coil Placer Name Role Phone Jackie Hurtado MD Primary Care Provider [phone] Allergies Active AllergyReactionsCriticalityNoted DateCommentsNo Known Drug Allergies 04/02/2017 Medications MedicationSigDispense QuantityRefillsLast FilledStart DateEnd DateStatus gabapentin (NEURONTIN) 300 mg capsule Take 1 capsule (300 mg total) by mouth 3 (three) times a day.Active sertraline (ZOLOFT) 25 mg tablet Take 1 tablet (25 mg total) by mouth daily. 90 tablet Active hydrocortisone (CORTEF) 10 mg tablet TAKE 4 TABLETS BY MOUTH IN THE AM AND 2 TABLETS BY MOUTH IN THE EVENING WHEN ILL 180 tablet Active hydroCHLOROthiazide (HYDRODIURIL) 25 mg tablet Take 1 tablet (25 mg total) by mouth daily. 90 tablet 04/13/2020Active meloxicam (MOBIC) 7.5 mg tablet Take 1 tablet (7.5 mg total) by mouth daily. 90 tablet 05/16/2020Active tiZANidine (ZANAFLEX) 4 mg capsule TAKE 1 CAPSULE BY MOUTH NIGHTLY. 90 capsule Active KLOR-CON M20 20 mEq CR tablet TAKE 1 TABLET BY MOUTH EVERY DAY 90 tablet ctive amLODIPine (NORVASC) 10 mg tablet Take 1 tablet (10 mg total) by mouth daily. 90 tablet ctive Additional Information Patient not taking.Reported on 01/05/2024 fludrocortisone (FLORINEF) 0.1 mg tablet Take 1 tablet (0.1 mg total) by mouth daily. 90 tablet ctive losartan (COZAAR) 100 mg tablet TAKE 1 TABLET BY MOUTH EVERY DAY 90 tablet ctive pantoprazole (PROTONIX) 40 mg EC tablet TAKE 1 TABLET BY MOUTH TWICE A DAY 180 tablet ctive albuterol (PROVENTIL HFA;VENTOLIN HFA) 90 mcg/actuation inhaler Inhale 1 puff every 4 (four) hours as needed.4Active Active Problems ProblemNoted DateDiagnosed DateEssential hypertension, klifaz1804/08/2017Abnormal finding on thyroid function test01/09/2004Corticoadrenal csgigmrvubpos66/06/2004 [place] diseaseGraves diseaseDegenerative arthritis Encounters DateTypeDepartmentCare ZbsqIicpxmedzor27/05/2025Travelfrom Last 3 Months Immunizations ImmunizationAdministration DatesNext DueInfluenza, Injectable, quadrivalent (PF) 02/03/2020Influenza, Kdrbzkgkkny42/07/2020,04/03/2004Pneumococcal Polysaccharide 04/03/2004Td, Feumagyylpr31/15/2004 Family History Medical HistoryRelationNameCommentsHypertensionBrotherHyperlipidemiaFather HypertensionFatherHyperlipidemiaMotherRelationNameStatusCommentsBrotherFather Mother Social History Tobacco UseTypesPacks/DayYears UsedDateSmoking Tobacco: NeverSmokeless Tobacco: Never Tobacco Cessation:Counseling Given: Not Answered Alcohol UseStandard Drinks/WeekCommentsYes0 (1 standard drink = 0.6 oz pure alcohol)Social Connection and Isolation PanelAnswerDate RecordedIn a typical week, how many times do you talk on the phone with family, friends, or neighbors?More than three times a week05/07/2020How often do you get together with friends or relatives?Three times a week05/07/2020How often do you attend zoroastrianism or pentecostalism services?1 to 4 times per year05/07/2020Do you belong to any clubs or organizations such as zoroastrianism groups, unions, fraternal or athletic lalita ups, or school groups?No05/07/2020How often do you attend meetings of the clubs or organizations you belong to?Never05/07/2020Are you , , , , never , or living with a partner?Wvaflrb6705/07/2020 AUDIT-CAnswerDate RecordedQ1: How often do you have a drink containing alcohol?4 or more times a week05/07/2020Average Number of DrinksNot on file05/07/2020Q3: How often do you have six or more drinks on one occasion?Never05/07/2020Overall Financial Resource Strain (CARDIA)AnswerDate RecordedHow hard is it for you to pay for the very basics like food, housing, medical care, and heating?Not hard at all05/07/2020PHQ-2AnswerDate RecordedTotal Rtukh41807/09/2019Finmountain west medical center [place] of Occupational Health - Occupational Stress QuestionnaireAnswerDate RecordedDo you feel stress - tense, restless, nervous, or anxious, or unable to sleep at night because yourmind is troubled all the time - these days?To some extent 05/07/2020Exercise Vital SignAnswerDate RecordedOn average, how many days per week do you engage in moderate to strenuous exercise (like a brisk walk)?1 day 05/07/2020On average, how many minutes do you engage in exercise at this level? 20 min05/07/2020PRAPARE - TransportationAnswerDate RecordedIn the past 12 months, has lack of transportation kept you from medical appointments or from getting medications?No05/07/2020In the past 12 months, has lack of transportation kept you from meetings, work, or from getting things needed for daily living?No05/07/2020ChildcareAnswerDate RecordedDo problems getting maternal child nurse make it difficult for you to work or study?No05/07/2020EmploymentAnswerDate RecordedDo you need help finding a local career center and/or a training program?No05/07/2020Purpose - LifeAnswerDate RecordedPurpose and direction in nqojGneyeni38/08/2021EducationAnswerDate RecordedWhat is the highest level of school you have completed or the highest degree you have received?Some college, no kdzclc1405/07/2020Sex and Gender InformationValueDate RecordedSex Assigned at BirthNot on fileLegal QgdIbmf3901/05/2015 11:22 AM EDTGender IdentityNot on file Sexual OrientationNot on file Last Filed Vital Signs Vital SignReadingTime TakenCommentsBlood Xhnopfil263/6908 9:55 AM EDT Gynda420201/05/2024 9:55 AM CQCJwvfabbvgti63.4 ??C (97.5 ??F)05/08/2020 11:25 AM ESTRespiratory Jlwx477707/09/2019 11:25 AM ESTOxygen Saturation--Inhaled Oxygen Concentration--Oytngc79.3 kg (210 lb)01/05/2024 9:55 AM QGNKxufvc424.9 cm (6') 01/05/2024 9:55 AM EDTBody Mass Index28.48001/05/2024 9:55 AM EDT Plan of Treatment Health MaintenanceDue DateLast DoneCommentsDepression Zkcvuwtqu95/15/1971 DTaP,Tdap and Td Vaccines (1 - Tdap)Zoster (Shingles) Vaccine (1 of 2)01/14/20095201Gmzgkahayky11, 03/27/2012Fall Risk Otgkyqvrm29/15/2024dult BMI Alqcqrnyc42Tobacco Screening 4COVID-19 Vaccine ( season)501/08/2021, 09/05/2020, 08/16/2020Influenza Geojmkx76/, 02/21/2023, 02/13/2022, Additional history exists Medical Devices Not on file Procedures Procedure NamePriorityDate/TimeAssociated DiagnosisCommentsRENAL PANELRoutine 02/04/2025 8:28 AM EDT Primary adrenocortical insufficiency (CMS-HCC) Vitamin D deficiency, unspecified LIPID JMSJEYFUtpzred36/05/2025 8:28 AM EDT Primary adrenocortical insufficiency (CMS-HCC) Vitamin D deficiency, unspecified VITAMIN D 25 FSILLFSQkzhhiv51/09/2024 8:28 AM EDT Primary adrenocortical insufficiency ([facility]-HCC) Vitamin D deficiency, unspecified QGHTODSLQXCRegeksg40/26/2012from Last 3 Months or Most Recently Relevant to Health Maintenance Results * (ABNORMAL) Renal panel (02/04/2025 8:28 AM EDT)ComponentValueRef RangeTest MethodAnalysis TimePerformed AtPathologist SignatureALBUMIN4.43.2 - 5.3 g/dL 02/04/2025 2:34 PM [facility] LABORATORYCALCIUM9.68.5 - 10.5 mg/dL02/04/2025 2:34 PM [facility] LABORATORYPHOSPHORUS3.12.4 - 4.9 mg/dL02/04/2025 2:34 PM [facility] FZFGLNWJZIVPQPSPU45 65 - 99 mg/dL02/04/2025 2:34 PM [facility] LABORATORYBLOOD UREA MCVQBEFV78(H)5 - 27 mg/dL02/04/2025 2:34 PM [facility] LABORATORYCREATININE1.65(H)0.60 - 1.30 mg/dL02/04/2025 2:34 PM [facility] LABORATORYComment:METHOD TRACEABLE TO IDMS VCGFGVBOVMDSKX418 134 - 146 mmol/L02/04/2025 2:34 PM [facility] POTASSIUM4.33.5 - 5.0 mmol/L02/04/2025 2:34 PM [facility] YOXHMPDOTXIQTWTNDX39714 - 109 mmol/L02/04/2025 2:34 PM [facility] LABORATORYCARBON KLCTZNV4432 - 32 mmol/L02/04/2025 2:34 PM [facility] LABORATORYANION VAY250 - 15 mmol/L02/04/2025 2:34 PM EDT [facility] LABORATORYEGFR Non-Race Ziqeaytxv23(L)>=60 ml/min/1.73sq.m002/04/2025 2:34 PM [facility] Comment: Reported eGFR is based on the CKD-EPI 2020 equation that does not use a race coefficient. Specimen (Source)Anatomical Location / LateralityCollection Method / Volume Collection TimeReceived TimeBloodVenous blood / UnknownVenipuncture / Unknown 02/04/2025 8:28 AM EDT02/04/2025 8:28 AM EDT Narrative Authorizing ProviderResult TypeResult StatusAlfa Sky [facility]OM[facility] BLOOD ORDERABLESFinal ResultPerforming OrganizationAddressCity/State/ZIP CodePhone Number [facility] [address] [place] [address], * Vitamin D 25 hydroxy (02/04/2025 8:28 AM EDT)ComponentValueRef RangeTest MethodAnalysis TimePerformed AtPathologist SignatureVITAMIN D 25 HYD TOT43.0 30.0 - 100.0 ng/mL02/04/2025 2:55 PM [facility] Specimen (Source)Anatomical Location / LateralityCollection Method / Volume Collection TimeReceived TimeBloodVenous blood / UnknownVenipuncture / Unknown 02/04/2025 8:28 AM EDT02/04/2025 8:28 AM EDT Narrative [facility] - 02/04/2025 2:55 PM EDT Vitamin D status 25 [place] Vitamin D Deficiency <20 ng/mL Insufficiency ? 20-29 ng/mL Sufficiency ? 30-100 ng/mL Toxicity >100 ng/mL NOTE: A pediatric reference range has not been established by the supply analyst of this kit. The [place] [employer] recommends a Vitamin D level of = or >20ng/mL in infants and children. Authorizing ProviderResult TypeResult StatusAlfa Sky [facility]DCOM[facility] BLOOD ORDERABLESFinal ResultPerforming OrganizationAddressCity/State/ZIP CodePhone Number [facility] [address] [place] [address], * Lipid profile (02/04/2025 8:28 AM EDT)ComponentValueRef RangeTest Method Analysis TimePerformed AtPathologist ZctfkrqnvOZNFHNCMTFD164247 - 200 mg/dL 02/04/2025 2:34 PM [facility] POFXLZBNLYERILDQJHRSUR41239 - 150 mg/dL02/04/2025 2:34 PM [facility] LABORATORYHDL ZKUMUMBCSHS71>39 mg/dL02/04/2025 2:34 PM [facility] LABORATORYComment: HDL <40 mg/dL - High Risk HDL > or = 40mg/dL- Desirable HDL >60 mg/dL - Negative Risk LDL (CALC)96<130 mg/dL02/04/2025 2:34 PM [facility] Comment: LDL <100 mg/dL - Desirable LDL >160 mg/dL - High Risk CHOLESTEROL:HDL2.81.0 - 5.009 2:34 PM [facility] LABORATORYVERY LOW KJFDTEEZNDE263 - 30 mg/dL02/04/2025 2:34 PM [facility] LABORATORYSpecimen (Source)Anatomical Location / Laterality Collection Method / VolumeCollection TimeReceived TimeBloodVenous blood / UnknownVenipuncture / Zixhiee7902/04/2025 8:28 AM EDT02/04/2025 8:28 AM EDT Narrative Authorizing ProviderResult TypeResult StatusAlfa RANDLE BLOOD ORDERABLESFinal ResultPerforming OrganizationAddressCity/State/ZIP CodePhone Number [facility] [address] [place] [address], * Colonoscopy (03/27/2012) Narrative Authorizing ProviderResult TypeResult StatusNot In System Ref ProvGI PROCEDURE ORDERABLESFinal ResultPerforming OrganizationAddressCity/State/ZIP CodePhone Number [facility] EXTERNAL NON-INTERFACED REF LAB [address] [place] [address] from Last 3 Months or Most Recently Relevant to Health Maintenance Insurance Care Teams Team MemberRelationshipSpecialtyStart DateEnd Date Jackie Hurtado MD [address] [place] [address] PCP - GeneralFamily Uiqtrgvb59/17/22
[2025-03-29 20:47] LABS: Glucose Urine UA NEGATIVE (NEGATIVE)
== END 2025-03-29 19:33 | disposition home or self-care (01) ==
LOC: LAB 19:32
PROVIDERS: PCP Family Medicine; Visit Provider Internal Medicine Hematology & Oncology
DX: I26.09 Other pulmonary embolism with acute cor pulmonale (principal)
CPT/HCPCS: 81003; 87086

== ENCOUNTER 2025-04-26 10:30 | Outpatient (RCR) | payer MEDICARE, SELFPAY | END 2025-05-01 23:59 | disposition home or self-care (01) | LOC: HEMC 10:30 | PROVIDERS: PCP Family Medicine; Visit Provider Internal Medicine Hematology & Oncology | DX: I26.09 Other pulmonary embolism with acute cor pulmonale (principal) | CPT/HCPCS: 36415; 81240; 81241 ==